=== PATIENT | male | born 1960 | race Caucasian/White ===

== ENCOUNTER → 2017-09-06 12:57 | Outpatient (CLI) | payer MEDICARE, SELFPAY ==
[2017-09-11 17:01] LABS: Fecal Immunochemical Test NOT DETECTED
== END ==
PROVIDERS: PCP Family Medicine; Visit Provider Family Medicine
DX: Z12.11 Encounter for screening for malignant neoplasm of colon (principal)
CPT/HCPCS: 82274

== ENCOUNTER → 2019-10-15 16:00 | Outpatient (CLI) | payer MEDICARE, SELFPAY ==
[2019-10-18 04:36] LABS: COVID19 Sendout Not Detected (Not Detected)
== END ==
PROVIDERS: PCP Family Medicine; Visit Provider Physician Assistant
DX: R05 Cough (principal)
CPT/HCPCS: 87635

== ENCOUNTER → 2019-12-30 16:37 | Outpatient (CLI) | payer MEDICARE, SELFPAY ==
[2020-01-01 01:59] LABS: Fecal Immunochemical Test Negative (Negative)
== END ==
PROVIDERS: PCP Family Medicine; Referring Provider Family Medicine; Visit Provider Family Medicine
DX: Z12.11 Encounter for screening for malignant neoplasm of colon (principal)
CPT/HCPCS: 82274

== ENCOUNTER → 2020-01-21 09:57 | Outpatient (CLI) | payer MEDICARE, SELFPAY ==
--- NOTE | 2020-01-21 10:20 | DI.CT.S_ITS ---
PROCEDURE: CT SINUS SCREEN WO CON INDICATIONS: Other chronic sinusitis TECHNIQUE: Noncontrast 3.0 mm axial images acquired from the frontal sinuses to the mid-sella, with coronal and sagittal reformats. For radiation dose reduction, the following was used: automated exposure control, adjustment of mA and/or kV according to patient size. COMPARISON: None. FINDINGS: Image quality: Excellent. Maxillary Sinuses: No bony remodeling or destruction. Sinuses are clear. Ethmoid Air Cells: No bony remodeling or destruction. There is mild mucosal thickening seen. Sphenoid Sinuses: No bony remodeling or destruction. Sinuses are clear. Frontal Sinuses: No bony remodeling or destruction. Sinuses are clear. Ostiomeatal Complexes: Ostiomeatal complexes are patent. No Dayron cells. Miscellaneous: Visualized intra-orbital contents are normal. No penny bullosa or paradoxical turbinate curvature. There is mild to moderate rightward nasal septal deviation. IMPRESSION: Mild mucosal thickening is seen within the ethmoid air cells. The paranasal sinuses otherwise appear clear. Mild to moderate rightward nasal septal deviation can be seen. Dictated by: Vincenzo Love M.D. on 01/21/2020 at 9:26 Approved by: Vincenzo Love M.D. on 01/21/2020 at 9:27
== END ==
PROVIDERS: PCP Family Medicine; Referring Provider Otolaryngology; Visit Provider Otolaryngology
DX: J01.41 Acute recurrent pansinusitis (principal); J32.8 Other chronic sinusitis; J34.89 Other specified disorders of nose and nasal sinuses; J34.2 Deviated nasal septum; R51 Headache; F17.210 Nicotine dependence, cigarettes, uncomplicated
CPT/HCPCS: 70486

== ENCOUNTER → 2020-08-24 07:42 | Outpatient (CLI) | payer MEDICARE, SELFPAY ==
[2020-08-24 08:28] LABS: Hemoglobin A1C% w Est Avg Glu 5.8 % (4.0-6.0)
[2020-08-24 08:59] LABS: Cholesterol 199 mg/dL (140-199); Glucose 108 mg/dL (80-110); HDL Cholesterol 31 mg/dL (40-60); LDL Cholesterol Calculated 141 mg/dL (<100); Triglycerides 137 mg/dL (35-150)
[2020-08-24 09:28] LABS: TSH w/ Reflex to FT4 2.63 uIU/mL (0.47-4.68)
== END ==
PROVIDERS: PCP Family Medicine; Referring Provider Family Medicine; Visit Provider Family Medicine
DX: R20.8 Other disturbances of skin sensation (principal); Z13.1 Encounter for screening for diabetes mellitus; Z13.220 Encounter for screening for lipoid disorders
CPT/HCPCS: 36415; 80061; 82947; 83036; 84443

== ENCOUNTER → 2021-01-12 09:46 | Outpatient (CLI) | payer MEDICARE, SELFPAY ==
[2021-01-12 10:39] LABS: COVID19 -Nasal RAPID Negative (Negative)
== END ==
PROVIDERS: PCP Family Medicine; Visit Provider Physician Assistant
DX: Z20.822 Contact with and (suspected) exposure to COVID-19 (principal)
CPT/HCPCS: 87635

== ENCOUNTER → 2021-05-02 12:25 | Outpatient (CLI) | payer MEDICARE, SELFPAY ==
[2021-05-02 13:05] LABS: Estimated Glomerular Filt Rate > 60.0 mL/min (>60)
== END ==
PROVIDERS: PCP Family Medicine; Referring Provider Otolaryngology; Visit Provider Otolaryngology
DX: D37.09 Neoplasm of uncertain behavior of other specified sites of the oral cavity (principal)
CPT/HCPCS: 36415; 82565

== ENCOUNTER → 2021-07-18 15:23 | Outpatient (CLI) | payer MEDICARE, SELFPAY ==
--- NOTE | 2021-07-29 08:16 | PM.CARDMON.1 ---
Digital Media Specialist Report Referral & Results Date Patient Seen: 07/18/21 Requesting provider: Patty Summers Indication: Arrhythmia Duration of monitoring (days): 2 Diary information: There were 91 patient triggered events and 2 patient diary entries Patient events were associated variably (within 45 seconds) with sinus rhythm, simple PVCs, simple PACs, ventricular bigeminy, and ventricular trigeminy Data: Minimum heart rate identified was 55 beats per minute at 06:01 on 07/19/2021 Maximum sinus heart rate was 135 beats per minute at 09:31 on 07/19/2021. This was also the maximum overall heart rate Less than 1% of identified beats were supraventricular ectopic in origin which would classify them as rare Approximately 2.9% of identified beats were ventricular ectopic in origin which would classify them as occasional, this includes a 1 minute 15 second run of ventricular trigeminy and then 8.1 second run of ventricular bigeminy No pauses of 3 seconds or longer or atrial fibrillation identified on this study Impression: 2 day equipment monitor phototypesetting demonstrating occasional PVCs including very brief runs of ventricular bigeminy and ventricular trigeminy Patient reported events are not necessarily associated with anyone particular dysrhythmia although ventricular dysrhythmias are more frequent than supraventricular dysrhythmias Clinical correlation suggested
== END ==
PROVIDERS: PCP Family Medicine; Referring Provider Family Medicine; Visit Provider Family Medicine
DX: I49.9 Cardiac arrhythmia, unspecified (principal)
CPT/HCPCS: 93244; 93246

== ENCOUNTER → 2021-12-02 08:37 | Outpatient (CLI) | payer MEDICARE, SELFPAY ==
[2021-12-02 15:51] LABS: Adenovirus F 40/41 Not Detected (Not Detect); Astrovirus Not Detected (Not Detect); Campylobacter Not Detected (Not Detect); Clostridium difficile toxin AB Not Detected (Not Detect); Cryptosporidium Not Detected (Not Detect); Cyclospora cayetanensis Not Detected (Not Detect); Entamoeba histolytica Not Detected (Not Detect); Enteroaggregative E.coli Not Detected (Not Detect); Enteropathogenic E.coli Detected (Not Detect); Enterotoxigenic E.coli It/st Not Detected (Not Detect); Giardia lamblia Not Detected (Not Detect); Norovirus GI/GII Not Detected (Not Detect); Plesiomonsa shigelloides Not Detected (Not Detect); Rotavirus A Not Detected (Not Detect); Salmonella Not Detected (Not Detect); Sapovirus Not Detected (Not Detect); Shiga-like toxin-prod E.coli Not Detected (Not Detect); Shigella/Enteroinvasive E.coli Not Detected (Not Detect); Vibrio Not Detected (Not Detect); Vibrio cholerae Not Detected (Not Detect); Yersinia enterocolitica Not Detected (Not Detect)
== END ==
PROVIDERS: Family Provider Family Medicine; PCP Family Medicine; Referring Provider Student in an Organized Health Care Education/Training Program; Visit Provider Student in an Organized Health Care Education/Training Program
DX: R19.7 Diarrhea, unspecified (principal)
CPT/HCPCS: 87507

== ENCOUNTER → 2021-12-22 14:50 | Outpatient (CLI) | payer MEDICARE, SELFPAY | PROVIDERS: Family Provider Family Medicine; PCP Family Medicine; Referring Provider Family Medicine; Visit Provider Family Medicine | DX: R19.7 Diarrhea, unspecified (principal) | CPT/HCPCS: 87045; 87899 ==

== ENCOUNTER → 2022-01-13 08:09 | Outpatient (CLI) | payer MEDICARE, SELFPAY ==
[2022-01-13 10:04] LABS: T4 Total Thyroxine 6.95 ug/dL (5.5-11.0)
[2022-01-13 12:02] LABS: Adenovirus F 40/41 Not Detected (Not Detect); Astrovirus Not Detected (Not Detect); Campylobacter Not Detected (Not Detect); Clostridium difficile toxin AB Not Detected (Not Detect); Cryptosporidium Not Detected (Not Detect); Cyclospora cayetanensis Not Detected (Not Detect); Entamoeba histolytica Not Detected (Not Detect); Enteroaggregative E.coli Not Detected (Not Detect); Enteropathogenic E.coli Not Detected (Not Detect); Enterotoxigenic E.coli It/st Not Detected (Not Detect); Giardia lamblia Not Detected (Not Detect); Norovirus GI/GII Not Detected (Not Detect); Plesiomonsa shigelloides Not Detected (Not Detect); Rotavirus A Not Detected (Not Detect); Salmonella Not Detected (Not Detect); Sapovirus Not Detected (Not Detect); Shiga-like toxin-prod E.coli Not Detected (Not Detect); Shigella/Enteroinvasive E.coli Not Detected (Not Detect); Vibrio Not Detected (Not Detect); Vibrio cholerae Not Detected (Not Detect); Yersinia enterocolitica Not Detected (Not Detect)
[2022-01-14 15:03] LABS: Fats, Neutral Normal (.); Fats, Total Normal (.)
[2022-01-16 09:01] LABS: CMV DNA, Quant Real Time PCR Negative (Negative)
[2022-01-17 17:45] LABS: Deamidated Gliadin Ab IgA 3 units (0-19); Deamidated Gliadin Ab IgG 2 units (0-19); Immunoglobulin A,Qn 196 mg/dL (61-437); t-Transglutaminase IgA 2 U/mL (0-3)
== END ==
PROVIDERS: Family Provider Family Medicine; PCP Family Medicine; Referring Provider Internal Medicine Gastroenterology; Visit Provider Internal Medicine Gastroenterology
DX: R19.7 Diarrhea, unspecified (principal)
CPT/HCPCS: 82705; 82784; 83516; 84436; 84439; 86644; 86645; 87177; 87205; 87329; 87497; 87507

== ENCOUNTER → 2022-02-28 09:28 | Outpatient (CLI) | payer MEDICARE, SELFPAY ==
[2022-02-28 10:16] LABS: COVID19 -Nasal RAPID Negative (Negative)
== END ==
PROVIDERS: Family Provider Family Medicine; PCP Family Medicine; Visit Provider Surgery
DX: Z01.812 Encounter for preprocedural laboratory examination (principal); Z20.822 Contact with and (suspected) exposure to COVID-19
CPT/HCPCS: 87635

== ENCOUNTER 2022-03-01 10:23 | Day surgery (SDC) | payer MEDICARE, SELFPAY ==
--- NOTE | 2022-03-01 | PATH_ITS ---
[facility] Accession Number: [id number] . 01 Material submitted: . PART A: colon - CECAL RANDOM COLON BIOPSIES PART B: colon - COLON POLYP @ 25CM PART C: colon - RECTOSIGMOID RANDOM COLON BIOPSIES . 01 Clinical history: . A,C: R/O COLITIS . 01 Diagnosis: A. Random Cecum, Biopsies: Lymphocytic colitis. . B. Colon Polyp at 25 cm, Biopsy: Tubular adenoma. . C. Random Rectosigmoid Colon, Biopsies: Lymphocytic colitis. MRV 03/03/2022 1542 Local . 01 Electronically signed: . Noe Armas MD, PhD, Pathologist NPI- [id number] . 01 Gross description: . Part A: CECAL RANDOM COLON BIOPSIES: Received in formalin are multiple fragment(s) of gillette, soft tissue measuring 1.0 x 0.3 x 0.1 cm in aggregate submitted entirely in 1 cassette(s) Part B: COLON POLYP @ 25CM: Received in formalin is 1 fragment(s) of gillette, soft tissue measuring 0.7 x 0.3 x 0.3 cm submitted entirely in 1 cassette(s) Part C: RECTOSIGMOID RANDOM COLON BIOPSIES: Received in formalin are multiple fragment(s) of gillette, soft tissue measuring 0.7 x 0.4 x 0.1 cm in aggregate submitted entirely in 1 cassette(s) /CPE 03/02/2022 0930 Local . 01 Pathologist provided ICD-10: K52.89, D12.6 . 01 CPT . 354234, [id number], [id number] Specimen Comment: A courtesy copy of this report has been sent to [phone] Performed at: [facility] [address] [place] [address], [place] [id number] MD Nathan Ag MD Phone: [phone]
[2022-03-01 10:50] VITALS: BP 156/85; PULSE 88; RESP 16; TEMP 36.4; O2SAT 96; BMI 29.4
[2022-03-01] MEDS: SODIUM CHLORIDE 0.9% 1,000 ML 84 ML IV (11:06)
--- NOTE | 2022-03-01 11:55 | PM.HP.1 ---
History of Present Illness History of Present Illness Date Patient Seen: 03/01/22 Chief complaint: SCREENING COLONOSCOPY Narrative: Change in bowel habits rule out colitis. In addition, colorectal cancer screening Patient History Medical History Acute appendicitis Bronchitis Right shoulder pain (03/04/14) Sinusitis Surgical History History of tonsillectomy Family & Social History Family History Sister Colorectal cancer Tobacco & Substance use: Smoking Status Current every day smoker Smoking packs per day 0.5 alcohol intake frequency holiday/special occasion Substance Use Type does not use Meds Home Medications and Allergies Home Medications Medication Instructions Recorded Confirmed Type calcium carbonate 300 mg (750 mg) 300 mg PO DAILY PRN dyspepsia 09/30/21 03/01/22 History chewable tablet (Tums) cholecalciferol (vitamin D3) 50 50 mcg PO DAILY 09/30/21 03/01/22 History mcg (2,000 unit) capsule guaifenesin 600 mg tablet, 600 mg PO BID 09/30/21 03/01/22 History extended release 12 hr melatonin 5 mg tablet 5 mg PO BEDTIME PRN Insomnia 09/30/21 03/01/22 History hbhgocns-ywc-dhqiu acid 300 1 tab PO DAILY 09/30/21 02/28/22 History mcg-lycopene 600 mcg-lutein 300 mcg tablet (Centrum Silver Men) pembrolizumab 25 mg/mL intravenous 200 mg IV Q3W 09/30/21 03/01/22 History solution simethicone 125 mg capsule (Gas-X 125 mg PO QD-BID PRN Indigestion 09/30/21 03/01/22 History Extra Strength) hydroxyzine HCl 25 mg tablet 25 mg PO TID PRN anxiety #30 tabs 11/30/21 03/01/22 Rx acetaminophen 325 mg capsule 650 mg PO Q6H PRN Pain (Scale 02/28/22 03/01/22 History (Tylenol) Score 4-6) pseudoephedrine HCl 30 mg tablet 30 mg PO Q4-6H PRN Allergy Symptoms 02/28/22 03/01/22 History (Sudafed) Allergies Allergy/AdvReac Type Severity Reaction Status Date / Time codeine AdvReac Mild NAUSEA Verified 03/01/22 10:35 Exam Vital Signs (past 8 hours): - 03/01/22 10:50 Temperature 97.6 F Pulse Rate 88 Respiratory Rate 16 Blood Pressure 156/85 H Pulse Oximetry 96 Oxygen Delivery Method Room Air Oxygen Delivery Method Room Air Narrative Exam Narrative: Oropharynx free of lesions Chest clear to auscultation and percussion Cardiac exam reveals no S3 or murmur Assessment & Plan Assessment & Plan narrative: Change in bowel movements need for colonoscopy to rule out underlying colitis. Screening for colon cancer will also be performed. Risks, benefits, alternatives have been explained. Time Spent With Patient Critical Care time: I spent a total of [] minutes of critical care time on this patient's care today; this time is exclusive of procedural time.
--- NOTE | 2022-03-01 11:57 | PM.OP.COLON ---
Operative Date/Time/Diagnoses Date of procedure: 03/01/22 Pre-op diagnosis: See indication and findings Procedure & Clinicians Study performed: Colonoscopy with biopsy Indications: Change in bowel movement and screening for colon cancer Surgeon: Markus Jewell Procedure Notes Procedure in detail: After informed consent was obtained the patient was placed in left lateral decubitus position. The video colonoscope was introduced the rectum slowly advanced cecum. On slow withdrawal mucosa was carefully examined. The scope was removed. The patient tolerated procedure well. Blood loss none Complications none Sedation propofol Findings 1. Diffuse mild changes throughout the colon. This included loss of vascularity, edema and patchy erythema. Biopsies were taken throughout the colon randomly. 2. 10 mm sessile polyp at 25 cm cold snared and removed. 3. Rectosigmoid with a bit more severity of the same findings. Biopsies taken into another bottle Will be in touch with Aaron about his biopsy results. He will most likely need follow-up colonoscopy in 5-7 years unless a clear-cut family history place him in the 3 year category.
[2022-03-01 12:29] VITALS: BP 118/72; PULSE 86; RESP 16; TEMP 36.7; O2SAT 96
[2022-03-01 12:34] VITALS: BP 120/70; PULSE 93; RESP 17; O2SAT 92
[2022-03-01 12:39] VITALS: BP 135/83; PULSE 77; RESP 13; O2SAT 96
[2022-03-01 12:44] VITALS: BP 133/84; PULSE 72; RESP 14; O2SAT 98
[2022-03-01 12:50] VITALS: BP 125/80; PULSE 75; RESP 14; O2SAT 98
== END 2022-03-01 13:02 | disposition home or self-care (01) ==
PROVIDERS: Family Provider Family Medicine; PCP Family Medicine; Referring Provider Internal Medicine Gastroenterology; Visit Provider Internal Medicine Gastroenterology
PROC: 0DJD8ZZ Inspection of Lower Intestinal Tract, Via Natural or Artificial Opening Endoscopic (ICD-10-PCS; CPT 45378; principal; 2022-03-01 11:30)
DX: K52.832 Lymphocytic colitis (principal); D12.6 Benign neoplasm of colon, unspecified
CPT/HCPCS: 45380; 45385; J2704

== ENCOUNTER → 2022-05-18 08:14 | Outpatient (CLI) | payer MEDICARE, SELFPAY ==
--- NOTE | 2022-05-18 15:43 | DIET.CONS ---
Dietary Consultation Note Assessment: 61 yo M attended visit to discuss what food he can eat to support his cancer treatment. 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 In the past yr he has lost over 40# (18.2%). Pt recently learned he has metastatic disease to lymph nodes and lungs. ? Past chemo side effects: nerves, headache, low appetite, bland taste, fatigue. Morning is roughest part of day, colitis at 4am. ? Food Recall: Sn: cheesecake B: eggs and harper, maltomeal L: pb and j on a spoon, deli meat and cheese or page D: soft taco with refried beans and cheese Sn: apple sauce, cottage cheese, mixed nuts No crunchy foods or bread, missing two teeth and half of hard palate due to cancer. ? Has his sister and friends as a support system. Walks ~2-3x/d (2 blocks) with dog and does light wt dumbbell?exercises to support muscles.? Pt is at high risk for continued wt loss and malnutrition due to upcoming cycles of chemotherapy.? Pt has heard many suggestions on how to support health during treatment and to support health to reduce further risk for cancer. Pt desires to learn concrete advice that will be realistic for him over the next few months. Wt: 90.3kg (18.2% in 1y) UBW: 110kg Nutrition Diagnosis: Moderate acute malnutrition r/t physiological causes increasing nutrient needs due to acute illness or injury/trauma aeb 18.2% wt loss in 1 year, colitis, recent metastatic cancer diagnosis, mouth surgery and upcoming chemotherapy. Interventions: 1. Discussed the importance of gaining and/or keeping wt steady through cancer treatment. Educated pt on the role of CHO and fat in terms of energy. Collaborated on ways to increase kcal intake - incorporating avocados, sour cream, more peanut butter, cheese and using full fat rather than reduced. [facility] Juan BORJAYL as a resource for recipes and information. Pt seemed motivated and plans to meal prep (fresh and frozen) prior to chemo treatment.? 2. Discussed pts concerns regarding F/V intake during chemo treatment and role of supplements or flax oil. [facility] pt focus intake on high kcal/high pro foods which are easy to eat. Pt may consume F/V as desired, however, no need to push these foods. Recc avoiding supplements during chemo and to discuss any consumption of them with oncologist. Pt may consume flax oil as desired, recc Bardarnellan's flax on cottage cheese. 3. Reinforced pts current exercise routine of strength training twice weekly and walking dog daily. Reassured pt no need to incorporate more exercise to preserve LBM. Provided resource for easy strength training exercises. Monitoring/Evaluations: f/u prn Electronically Signed by: Sandra Meek 05/18/22 15:43 Clinical Dietitian [address] [id number]
== END ==
PROVIDERS: Absent Provider Internal Medicine Medical Oncology; Family Provider Family Medicine; PCP Family Medicine; Referring Provider Family Medicine
DX: C06.0 Malignant neoplasm of cheek mucosa (principal); E44.0 Moderate protein-calorie malnutrition; Z71.3 Dietary counseling and surveillance; F17.200 Nicotine dependence, unspecified, uncomplicated
CPT/HCPCS: 97802

== ENCOUNTER → 2022-10-13 09:06 | Outpatient (CLI) | payer MEDICARE, SELFPAY ==
--- NOTE | 2022-10-13 09:08 | DI.RAD.S_ITS ---
PROCEDURE: XR CHEST 2V INDICATIONS: Cough TECHNIQUE: 2 views of the chest were acquired. COMPARISON: [facility], , CHEST 2 VIEW, 09/03/2006, 17:12. FINDINGS: Surgical changes and devices: None. Lungs and pleura: Right lower lobe nodule versus prominent nipple shadow. Clear chest otherwise. Mediastinum: Mediastinal contours are normal. Heart size is normal. Bones and chest wall: No suspicious bony abnormalities. Soft tissues appear unremarkable. IMPRESSION: No acute cardiopulmonary process. Right lower lobe nodule versus prominent nipple shadow. Dictated by: Brooks Michelle M.D. on 10/13/2022 at 9:21 Approved by: Brooks Michelle M.D. on 10/13/2022 at 9:22
== END ==
PROVIDERS: Family Provider Family Medicine; PCP Family Medicine; Referring Provider Nurse Practitioner Family; Visit Provider Nurse Practitioner Family
DX: R05.9 Cough, unspecified (principal)
CPT/HCPCS: 71046

== ENCOUNTER 2023-04-27 17:50 | Emergency (ER) | payer MEDICARE, SELFPAY ==
[2023-04-27 17:52] VITALS: BP 131/97; PULSE 98; RESP 16; TEMP 36.6; O2SAT 99; BMI 29.4
--- NOTE | 2023-04-27 18:42 | DI.CT.S_ITS ---
PROCEDURE: CT ABDOMEN PELVIS W CON INDICATIONS: Abdominal pain TECHNIQUE: After the administration of intravenous contrast, axial sections acquired from the lung bases to the pubic symphysis. Coronal and sagittal reformats were performed. For radiation dose reduction, the following was used: automated exposure control, adjustment of mA and/or kV according to patient size. COMPARISON: [facility], [place], PET WHOLE BODY MELANOMA, 12/20/2022, 8:21. [facility], [place], ABDOMEN/PELVIS WITH CONTRAST, 09/25/2014, 16:40. FINDINGS: Image quality: Diagnostic. Lower Chest: 8 mm left lobe nodule series 5, image 2, unchanged. Posterior right lower lobe nodule measuring 5 mm series 5, image 11 has decreased from 10 mm on prior exam. ABDOMEN: Liver: Hepatic steatosis is present. Unchanged appearance of low-attenuation foci with the larger most consistent with simple cysts. Smaller lesions are too small to definitively characterize. Gallbladder: No radiopaque gallstones or wall thickening. Biliary ducts: No biliary dilation. Pancreas: No ductal dilation. Spleen: Size is within normal limits. Adrenal Glands: Unchanged nodular thickening of the left adrenal gland.. Kidneys and Ureters: No hydronephrosis. No solid mass. No complex renal cystic lesion which requires follow up. Simple left renal cysts. Stomach and Bowel: Normal colonic caliber, without significant wall thickening. Minimal diverticula without inflammatory change. Peritoneum: No abnormal intraperitoneal fluid. No free air. Ventral Wall: No hernia. Abdominal Nodes: No retroperitoneal or mesenteric adenopathy by size criteria. Vessels: Aorta and inferior vena cava are normal in size. PELVIS: Pelvic Organs: Unremarkable. Bladder: Unremarkable. Pelvic Nodes: No enlarged lymph nodes. Miscellaneous: No inguinal hernias are seen. Bones: No aggressive osseous abnormality. IMPRESSION: No acute intra-abdominal pelvic process. Lower lobe pulmonary nodules similar versus decreased in size. Dictated by: Chetna Crocker M.D. on 04/27/2023 at 19:39 Approved by: Chetna Crocker M.D. on 04/27/2023 at 19:45
[2023-04-27 18:51] LABS: Add Manual Diff / Slide Review NO; Basophils Absolute Auto 200 /uL (0-100); Basophils Percent Auto 1.2 % (0-2); Eosinophils Absolute Auto 200 /uL (0-450); Eosinophils Percent Auto 1.9 % (2-4); Hemoglobin 17.4 g/dL (13.5-17.5); Lymphocytes Absolute Auto 3900 /uL (1100-4500); Lymphocytes Percent Auto 30.6 % (25-40); Mean Corpuscular HGB Conc 34.8 % (30-36); Mean Corpuscular Hemoglobin 31.9 PG (26-34); Mean Corpuscular Volume 91.6 fL (80-100); Monocytes Absolute Auto 900 /uL (0-900); Monocytes Percent Auto 7.4 % (3-14); Neutrophils Absolute Auto 7500 /uL (1500-7000); Neutrophils Percent Auto 58.9 % (50-75); Platelet Count 304 X10^3/uL (150-400); Red Blood Cell Count 5.46 X10^6/uL (4.5-5.9); Red Cell Distribution Width 13.1 % (11.6-14.8); White Blood Cell Count 12.8 X10^3/uL (4.5-11.0)
[2023-04-27 18:54] LABS: Bacteria Urine None Seen; Culture Indicated Urine Cult Not Indicated; RBC Urine None Seen (0-5/HPF); Squamous Epithelial Cell Urine 0-1 /HPF (0-5/HPF); WBC Urine None Seen (0-5/HPF)
--- NOTE | 2023-04-27 18:56 | ED_ITS ---
HPI - Abdominal Pain General Chief Complaint: Abdominal Pain Stated Complaint: sent by wic/BP/Stomach pain Time Seen by Provider: 04/27/23 18:15 History of Present Illness HPI narrative: 62-year-old male who presents with progressively worsening generalized abdominal discomfort that is described is a ?pressure? with associated gas/bloating for 1- 2 weeks. Patient reports history of similar symptoms that have been ongoing for 1-2 years. Patient states that he has a history of colitis, metastatic melanoma with current immunotherapy. Patient reports using budesonide to help with chronic diarrhea. Patient states that he started a new blood pressure medication x 1 week ago has occasionally felt some transient dizziness. No other complaints or associated symptoms noted. Patient was initially seen in the walk-in clinic and encouraged to come to the emergency department for further evaluation management. Patient arrives via private vehicle. Patient is awake, alert, in no apparent distress and maintaining his own airway. Related Data Home Medications Medication Instructions Recorded Confirmed calcium carbonate 300 mg (750 mg) 300 mg PO DAILY PRN dyspepsia 09/30/21 05/23/23 chewable tablet (Tums) cholecalciferol (vitamin D3) 50 50 mcg PO DAILY 09/30/21 05/23/23 mcg (2,000 unit) capsule melatonin 5 mg tablet 5 mg PO BEDTIME PRN Insomnia 09/30/21 05/23/23 mvibbbdu-nr-qeqxk 300 mcg-K 60 1 tab PO DAILY 09/30/21 05/23/23 mcg-lycop 600 mcg-lutein 300 mcg tablet (Centrum Silver Men) simethicone 125 mg capsule (Gas-X 125 mg PO QD-BID PRN Indigestion 09/30/21 05/23/23 Extra Strength) acetaminophen 325 mg capsule 650 mg PO Q6H PRN Pain (Scale 02/28/22 05/23/23 (Tylenol) Score 4-6) budesonide 3 mg 9 mg PO DAILY 03/08/22 05/23/23 capsule,delayed,extended release prochlorperazine maleate 10 mg 10 mg PO Q6H PRN 05/01/23 05/23/23 tablet nivolumab 100 mg/10 mL intravenous mg IV cancer care 05/23/23 05/23/23 solution (Opdivo) Previous Rx's Medication Instructions Recorded chlorhexidine gluconate 0.12 % 15 ml buccal DAILY PRN mouth sore 05/01/23 mouthwash #1,500 mL Allergies Allergy/AdvReac Type Severity Reaction Status Date / Time codeine AdvReac Mild NAUSEA Verified 05/23/23 13:58 Review of Systems Review of Systems Narrative: See HPI for pertinent positives, otherwise review of systems negative Patient History Medical History Bronchitis Sinusitis Right shoulder pain (03/04/14) Acute appendicitis Surgical History History of tonsillectomy Family History Sister Colorectal cancer Social History Smoking Status: Current every day smoker Smoking Status: Current every day smoker alcohol intake frequency: holidays/special occasions only Substance Use Type: does not use Exam Initial Vital Signs Initial Vital Signs: Vital Signs Temperature 97.8 F 04/27/23 17:52 Pulse Rate 98 H 04/27/23 17:52 Respiratory Rate 16 04/27/23 17:52 Blood Pressure 131/97 H 04/27/23 17:52 Pulse Oximetry 99 04/27/23 17:52 Oxygen Delivery Method Room Air 04/27/23 17:52 Const General: cooperative, comfortable and well developed [facility] Head: normal to inspection, normocephalic and atraumatic Nose: external nose normal and nares normal Mouth: oral mucosae normal, tongue normal, oropharynx normal and moist mucous membranes Throat: posterior oropharynx normal and uvula midline Eyes General: Yes appearance normal, both eyes and all related structures Neck Neck: normal visual inspection Chest Chest: normal inspection of the chest Resp Effort & Inspection: normal respiratory effort, able to speak in complete sentences and no respiratory distress Cardio Rate: regular rate Rhythm: regular rhythm Pulses: radial pulses present GI Inspection: normal to inspection, no edema, non-distended and no visible herniation Palpation: soft, No guarding, No hernia, No mass and No tender Other: Exam deferred Back/Spine/Pelvis Back: normal to inspection Skin General: no rashes or lesions noted and turgor normal Neuro General: patient alert, patient awake, patient oriented x3 and moves all extremities Extrem General: normal to inspection, full ROM and normal exam except as noted Psych Appearance: grossly normal Course Orders Ordered: Discontinued Medications Potassium Chloride (Potassium Chloride 20 Meq/15 Ml Udc) 40 meq PO NOW ONE Stop: 04/27/23 20:11 Last Admin: 04/27/23 20:17 Dose: 40 meq Documented By: TATE Vital Signs Vital signs: Vital Signs - 8 hr 04/27/23 17:52 Temperature 97.8 F Pulse Rate 98 H Respiratory Rate 16 Blood Pressure 131/97 H Pulse Oximetry 99 Oxygen Delivery Method Room Air MDM - Abdominal Pain Differential Diagnosis Differential diagnosis: Likely abdominal pain, acute appendicitis, calculus of kidney, constipation, diverticulitis, gastroenteritis, pancreatitis and small bowel obstruction Lab Data 04/27/23 18:33 04/27/23 18:33 Labs: Lab Results 04/27/23 04/27/23 Range/Units 18:30 18:33 WBC 12.8 H (4.5-11.0) X10^3/uL RBC 5.46 (4.5-5.9) X10^6/uL Hgb 17.4 (13.5-17.5) g/dL Hct 50.0 (41-53) % MCV 91.6 (80-100) fL MCH 31.9 (26-34) PG MCHC 34.8 (30-36) % RDW 13.1 (11.6-14.8) % Plt Count 304 (150-400) X10^3/uL Neut % (Auto) 58.9 (50-75) % Lymph % (Auto) 30.6 (25-40) % Desha % (Auto) 7.4 (3-14) % Eos % (Auto) 1.9 L (2-4) % Baso % (Auto) 1.2 (0-2) % Neut # (Auto) 7500 H (9048-6935) /uL Lymph # (Auto) 3900 (9834-0281) /uL Desha # (Auto) 900 (0-900) /uL Eos # (Auto) 200 (0-450) /uL Baso # (Auto) 200 H (0-100) /uL Sodium 132 L (137-145) mmol/L Potassium 3.2 L (3.4-5.1) mmol/L Chloride 91 L (98-107) mmol/L Carbon Dioxide 28 (22-32) mmol/L BUN 13 (9-20) mg/dL Creatinine 1.10 (0.66-1.25) mg/dL Estimated GFR > 60 (>60) mL/min BUN/Creatinine Ratio 11.8 (6-22) Glucose 119 H (80-110) mg/dL Calcium 10.1 (8.4-10.2) mg/dL Total Bilirubin 1.1 (0.2-1.3) mg/dL AST 31 (17-59) IU/L ALT 18 (<50) IU/L Alkaline Phosphatase 83 (38-126) U/L Total Protein 8.0 (6.3-8.2) g/dL Albumin 4.6 (3.5-5.0) g/dL Globulin 3.4 (1.7-4.1) g/dL Albumin/Globulin Ratio 1.4 (1.0-2.8) Lipase 187 (23-300) U/L Urine RBC None seen (0-5/HPF) Urine WBC None seen (0-5/HPF) Ur Squamous Epith Cells 0-1 /hpf (0-5/HPF) Urine Bacteria None seen (None) Ur Culture Indicated? Cult not indicated Point of care testing: Urine Dip Bedside Urine Glucose Negative Bedside Urine Bilirubin - Negative Bedside Urine Ketone - Negative Urine Specific [place] 1.010 Bedside Urine Occult Blood + Bedside Urine pH 5.5 Bedside Urine Protein - Negative Bedside Urine Urobilinogen - Negative Bedside Urine Nitrite - Negative Bedside Urine Leukocytes - Negative Esterase MDM Narrative Medical decision making narrative: Patient presents with abdominal pain and bloating. Patient currently is being treated for metastatic melanoma with immunotherapy. Patient reports chronic diarrhea. Current vital signs are within normal limits/nonactionable. Hypokalemia and hyponatremia noted along with persistent leukocytosis based on prior lab findings. Imaging is not suggestive of acute disease, bowel obstruction, perforation mass or abscess. Discussed findings with patient. Patient requests discharge home. Return precautions given. PCP follow-up recommended within 1 week. Patient discharged home in stable condition and able to ambulate well without assistance at time of discharge. Discharge Plan Departure Patient Disposition: Home Clinical Impression: Abdominal bloating, Hyponatremia, Hypokalemia Abdominal pain Qualifiers: Abdominal location: unspecified location Qualified Code(s): R10.9 - Unspecified abdominal pain Instructions: DI for Abdominal Pain-Adult, DI for Hypokalemia, DI for Hyponatremia Prescriptions: Continued cholecalciferol (vitamin D3) 50 mcg (2,000 unit) capsule 50 mcg PO DAILY calcium carbonate [Tums] 300 mg (750 mg) tablet,chewable 300 mg PO DAILY PRN (Reason: dyspepsia) simethicone [Gas-X Extra Strength] 125 mg capsule 125 mg PO QD-BID PRN (Reason: Indigestion) Centrum Silver Men 300-600-300 mcg tablet 1 tab PO DAILY melatonin 5 mg tablet 5 mg PO BEDTIME PRN (Reason: Insomnia) acetaminophen [Tylenol] 325 mg Capsule 650 mg PO Q6H PRN (Reason: Pain (Scale Score 4-6)) budesonide 3 mg Capsule,Delayed,Extend.Release 9 mg PO DAILY Rx Instructions: take 9 mg PO QD x 6 weeks then reduce to 6 mg daily x 2 weeks No Action Opdivo 100 mg/10 mL solution IV prochlorperazine maleate 10 mg tablet 10 mg PO Q6H PRN chlorhexidine gluconate 0.12 % mouthwash 15 ml buccal DAILY PRN (Reason: mouth sore) Qty: 1500 3RF Referrals: Rocio Colbert DO [Primary Care Provider] - As soon as possible Stand Alone Forms: Patient Portal/API
[2023-04-27 18:57] LABS: Alanine Aminotransferase 18 IU/L (<50); Albumin 4.6 g/dL (3.5-5.0); Albumin Globulin Ratio 1.4 (1.0-2.8); Alkaline Phosphatase 83 U/L (38-126); Aspartate Aminotransferase 31 IU/L (17-59); BUN Creatinine Ratio 11.8 (6-22); Bilirubin Total 1.1 mg/dL (0.2-1.3); Blood Urea Nitrogen 13 mg/dL (9-20); Calcium 10.1 mg/dL (8.4-10.2); Carbon Dioxide 28 mmol/L (22-32); Chloride 91 mmol/L (98-107); Estimated Glomerular Filt Rate > 60 mL/min (>60); Globulin 3.4 g/dL (1.7-4.1); Glucose 119 mg/dL (80-110); HEMOLYSIS 20 (0-50); Lipase 187 U/L (23-300); Potassium 3.2 mmol/L (3.4-5.1); Sodium 132 mmol/L (137-145)
[2023-04-27 19:21] VITALS: PULSE 77; O2SAT 95
[2023-04-27 19:30] VITALS: PULSE 79; O2SAT 93
[2023-04-27 20:00] VITALS: PULSE 76; O2SAT 92
[2023-04-27 20:17] VITALS: PULSE 82; O2SAT 96
[2023-04-27] MEDS: POTASSIUM CHLORIDE 20 MEQ/15 ML UDC 40 MEQ PO (20:17)
[2023-04-27 20:26] VITALS: BP 116/87
== END 2023-04-27 20:29 | disposition home or self-care (01) ==
PROVIDERS: Emergency Provider Emergency Medicine; Family Provider Family Medicine; PCP Family Medicine
DX: R10.9 Unspecified abdominal pain (principal); E87.1 Hypo-osmolality and hyponatremia; E87.6 Hypokalemia; R42 Dizziness and giddiness; R14.0 Abdominal distension (gaseous)
CPT/HCPCS: 36415; 74177; 80053; 81003; 81015; 83690; 85025; 99284; Q9967

== ENCOUNTER → 2023-08-31 06:51 | Outpatient (CLI) | payer MEDICARE, SELFPAY ==
[2023-08-31 08:19] LABS: Hemoglobin A1C% w Est Avg Glu 5.7 % (4.0-6.0)
[2023-08-31 08:35] LABS: BUN Creatinine Ratio 11.3 (6-22); Blood Urea Nitrogen 11 mg/dL (9-20); Calcium 8.8 mg/dL (8.4-10.2); Carbon Dioxide 25 mmol/L (22-32); Chloride 109 mmol/L (98-107); Cholesterol 222 mg/dL (140-199); Estimated Glomerular Filt Rate > 60 mL/min (>60); Glucose 83 mg/dL (80-110); HDL Cholesterol 44 mg/dL (40-60); HEMOLYSIS < 15 (0-50); LDL Cholesterol Calculated 165 mg/dL (<100); Sodium 141 mmol/L (137-145); Triglycerides 67 mg/dL (35-150)
[2023-08-31 09:28] LABS: HIV 1 & 2 Ab/Ag 4th Gen Combo NEGATIVE (NEGATIVE); Hep C Virus Ab w/Reflex Quant NEGATIVE s/c (NEGATIVE)
== END ==
PROVIDERS: Family Provider Family Medicine; PCP Family Medicine; Referring Provider Family Medicine; Visit Provider Family Medicine
DX: R73.01 Impaired fasting glucose (principal); E78.5 Hyperlipidemia, unspecified; I10 Essential (primary) hypertension
CPT/HCPCS: 36415; 80048; 80061; 83036; 86803; 87389

== ENCOUNTER 2024-01-04 09:37 | Day surgery (SDC) | payer MEDICARE, SELFPAY ==
[2024-01-02 16:18] VITALS: BMI 31.2
[2024-01-04] VITALS (8 sets, daily range): BP systolic 130–159; BP diastolic 64–92; PULSE 66–76; RESP 10–16; TEMP 36.3–36.8; O2SAT 94–97; BMI 31.5
--- NOTE | 2024-01-04 | DI.RAD.S_ITS ---
PROCEDURE: XR CHEST 1V INDICATIONS: LSC port TECHNIQUE: One view of the chest was acquired. COMPARISON: [facility], [place], XR CHEST 2V, 10/13/2022, 9:03. FINDINGS: Surgical changes and devices: Left chest wall port tip projects over the low SVC. Lungs and pleura: Lungs are clear. No pleural effusions or pneumothorax. Mediastinum: Mediastinal contours appear normal. Heart size is normal. Bones and chest wall: No suspicious bony lesions. Overlying soft tissues appear unremarkable. IMPRESSION: Left chest wall port tip projects over the low SVC. No pneumothorax. Dictated by: Brooks Michelle M.D. on 01/04/2024 at 13:05 Approved by: Brooks Michelle M.D. on 01/04/2024 at 13:07
[2024-01-04] MEDS: LACTATED RINGERS 1,000 ML 42 ML IV (10:19)
--- NOTE | 2024-01-04 11:18 | PM.HP.1 ---
History of Present Illness History of Present Illness Date Patient Seen: 01/04/24 Time Patient Seen: 11:38 Chief complaint: Port-a-cath placement Narrative: H/o melanoma of the hard pallate, has tried multiple treatment with modest to no success. Needs port a cath for future treatment. Never had a port before. [facility] Medical History IFG (impaired fasting glucose) Hyperlipidemia Benign essential hypertension Bronchitis Sinusitis Right shoulder pain (03/04/14) Acute appendicitis Surgical History History of tonsillectomy Family History Sister Colorectal cancer Social History household members: none Smoking Status: Current every day smoker Meds Home Medications and Allergies Home Medications Medication Instructions Recorded Confirmed Type calcium carbonate (Tums) 300 mg PO DAILY PRN dyspepsia 09/30/21 01/04/24 History cholecalciferol (vitamin D3) 50 50 mcg PO DAILY 09/30/21 01/04/24 History mcg (2,000 unit) capsule melatonin 5 mg tablet 5 mg PO BEDTIME PRN Insomnia 09/30/21 01/04/24 History ylfrxhqi-lr-mgfig 300 mcg-K 60 1 tab PO DAILY 09/30/21 01/04/24 History mcg-lycop 600 mcg-lutein 300 mcg tablet (Centrum Silver Men) acetaminophen 325 mg capsule 650 mg PO Q6H PRN Pain (Scale 02/28/22 01/04/24 History (Tylenol) Score 4-6) budesonide 3 mg 9 mg PO DAILY 03/08/22 01/04/24 History capsule,delayed,extended release losartan 50 mg tablet 50 mg PO DAILY blood pressure #90 08/27/23 01/04/24 Rx tabs nivolumab 240 fj-uxetfywcfa-joee 40 ml IV Q4W 08/27/23 01/04/24 History 80 mg/20 mL intravenous solution (Opdualag) varenicline 0.5 mg (11)-1 mg (42) See Rx Instructions PO PER PKG DIR 08/27/23 11/08/23 Rx tablets in a dose pack (Chantix #53 ea Starting Month Box) varenicline 1 mg tablet (Chantix) 1 mg PO BID #60 tabs 08/27/23 11/08/23 Rx Allergies Allergy/AdvReac Type Severity Reaction Status Date / Time codeine AdvReac Mild NAUSEA Verified 01/04/24 10:09 Review of Systems Review of Systems ROS: Yes All systems reviewed with the patient and are negative except as otherwise documented Exam Vital Signs (past 8 hours): - 01/04/24 10:22 Temperature 98.2 F Pulse Rate 66 Respiratory Rate 16 Blood Pressure 159/92 H Pulse Oximetry 97 Oxygen Delivery Method Room Air Oxygen Delivery Method Room Air Const General: cooperative, healthy appearing and comfortable Nutritional Appearance: average body habitus HENMT Head: normocephalic and atraumatic Ears: hearing grossly normal bilaterally Eyes Sclera: sclerae normal Neck Neck: trachea midline and No JVD Chest Chest: normal inspection of the chest Resp Effort & Inspection: normal respiratory effort and able to speak in complete sentences Cardio Rate: regular rate Rhythm: regular rhythm GI Palpation: soft and No tender Skin General: atrophy Neuro General: patient alert, patient awake and patient oriented x3 Cognition: normal cognition Psych Appearance: grossly normal Mental Status: mental status grossly normal Judgment: judgment good Assessment & Plan Assessment & Plan narrative: Melanoma Plan: left, possible right power port placement Time-Based Coding :: [TOTAL MINUTES] spent with patient and on the chart (including review of chart, obtaining history, exam, reviewing outside data, placing orders, documenting exam and treatment plan, and counseling patient) on [DATE].
[2024-01-04] MEDS: CEFAZOLIN 2 GM/100 ML PREMIX 100 ML IV (11:58)
--- NOTE | 2024-01-04 12:04 | SUR.OPER ---
Supine on padded OR bed, head on pillow, arms padded and tucked at sides, legs uncrossed, safety belt at thigh, tape over blanket over lower legs .
[2024-01-04] MEDS: LIDOCAINE 1% 20 ML INJ (12:06)
[2024-01-04] MEDS: BUPIVACAINE 0.25% (PF) 30 ML, EPINEPHrine 0.15 MG INJ (12:07)
[2024-01-04] MEDS: HEPARIN 5,000 UNIT, SODIUM CHLORIDE 0.9% 50 ML IV (12:09)
--- NOTE | 2024-01-04 12:41 | P.OP_ITS ---
Operative Date/Time/Diagnoses Date of procedure: 01/04/24 Time of procedure: 12:41 Pre-op diagnosis: Left subclavian vein Port-A-Cath placement, PowerPort Post-op diagnosis: same Procedure & Clinicians Procedure: Preop diagnosis: Left subclavian vein PowerPort placement Postop diagnosis: Same Operative procedure: Left subclavian vein PowerPort placement Surgeon: Dawna Whitaker MD Anesthetic: ET tube intubation along with local Findings: J-wire originally went into perfect positioning however when the catheter was placed over the wire I went across to the opposite subclavian vein. I then replaced the J-wire and re-did the catheter to put it into good position in the right atrium. Good venous return Procedure: Patient placed in a Trendelenburg position prepped and draped in sterile fashion. Left subclavian vein was accessed and with Seldinger technique J-wire was placed. Catheter length was sized and attached to the port itself which was thoroughly flushed with a heparin solution. This was placed into the left subclavian vein down to the right atrium using Seldinger technique. Had good venous flush on a return, and flushed the catheter with heparin solution. The port was then tacked to the anterior chest wall in 3 points using 2-0 Ethibond. Subcutaneous tissue was reapproximated with interrupted 3-0 Vicryl. Skin was closed with a running 4 0 barbed absorbable. Steri-Strips and sterile dressings were placed. Patient was awakened, extubated, taken to recovery room in stable condition. Needle, instrument, sponge counts were correct. Blood loss: 15 mL Same procedure as scheduled: Yes Indications: Melanoma Surgeon: Mercedes Whitaker Click Yes if Unassisted: Yes Anesthesia Type: General and Local Operative Notes Findings: Fluoroscopy confirmed positioning in the right atrium Closure Type: primary Specimen(s): none sent Applied: catheter (Eight [place] PowerPort) Estimated Blood Loss (mL): 15 Procedure in detail: See under procedure above Complications: none Post-operative Condition: stable Disposition: PACU
== END 2024-01-04 13:30 | disposition home or self-care (01) ==
PROVIDERS: Family Provider Family Medicine; PCP Family Medicine; Referring Provider Surgery; Visit Provider Surgery
PROC: (CPT 36561; principal; 2024-01-04 11:30)
DX: C43.8 Malignant melanoma of overlapping sites of skin (principal); Z45.2 Encounter for adjustment and management of vascular access device
CPT/HCPCS: 36561; 71045; 76000; C1788; J0171; J0690; J1100; J1644; J1885; J2250; J2405; J2704; J3010

== ENCOUNTER 2024-01-11 07:54 | Emergency (ER) | payer MEDICARE, SELFPAY ==
[2024-01-11] VITALS (18 sets, daily range): BP systolic 130–191; BP diastolic 74–106; PULSE 57–74; RESP 10–17; TEMP 37.1; O2SAT 94–99; BMI 31.5
--- NOTE | 2024-01-11 08:06 | EKG_ITS ---
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
--- NOTE | 2024-01-11 08:06 | DI.RAD.S_ITS ---
PROCEDURE: XR CHEST 1V INDICATIONS: Chest pain TECHNIQUE: One view of the chest was acquired. COMPARISON: [facility], CR, XR CHEST 1V, 01/04/2024, 12:54. FINDINGS: Surgical changes and devices: Port-A-Cath Lungs and pleura: Lungs are clear. No pleural effusions or pneumothorax. Mediastinum: Mediastinal contours appear normal. Heart size is normal. Bones and chest wall: No suspicious bony lesions. Overlying soft tissues appear unremarkable. IMPRESSION: No acute cardiopulmonary abnormality is seen. Dictated by: Bj Quevedo M.D. on 01/11/2024 at 8:39 Approved by: Bj Quevedo M.D. on 01/11/2024 at 8:39
[2024-01-11 08:23] LABS: Add Manual Diff / Slide Review NO; Basophils Absolute Auto 100 /uL (0-100); Basophils Percent Auto 0.9 % (0-2); Eosinophils Absolute Auto 200 /uL (0-450); Eosinophils Percent Auto 2.1 % (2-4); Hematocrit 41.7 % (41-53); Hemoglobin 14.3 g/dL (13.5-17.5); Lymphocytes Absolute Auto 3800 /uL (1100-4500); Lymphocytes Percent Auto 32.5 % (25-40); Mean Corpuscular HGB Conc 34.4 % (30-36); Mean Corpuscular Volume 93.1 fL (80-100); Monocytes Absolute Auto 800 /uL (0-900); Monocytes Percent Auto 7.2 % (3-14); Neutrophils Absolute Auto 6800 /uL (1500-7000); Neutrophils Percent Auto 57.3 % (50-75); Platelet Count 300 X10^3/uL (150-400); Red Blood Cell Count 4.48 X10^6/uL (4.5-5.9); Red Cell Distribution Width 14.1 % (11.6-14.8); White Blood Cell Count 11.8 X10^3/uL (4.5-11.0)
--- NOTE | 2024-01-11 08:24 | ED.CHESTPAIN ---
HPI - Chest Pain General Chief Complaint: Chest Pain Stated Complaint: chest pain, lightheadedness Time Seen by Provider: 01/11/24 08:05 Source: patient Mode of arrival: Ambulatory Limitations: no limitations History of Present Illness HPI narrative: Patient is a 63-year-old male he was encouraged to come to the emergency department by his primary doctor's office for evaluation of chest discomfort and generally not feeling very well to include lightheadedness. One week ago he had a port placed in his left upper chest. He has a history of mucosal melanoma. He has been on immunotherapy. There was a positive biopsy recently in the port was placed because there maybe a change to another immunotherapy versus chemotherapy. He has had the chest discomfort since he had the port placed. No fevers. No abdominal pain or vomiting. He occasionally gets GI upset and headaches because of his immunotherapy. Related Data Home Medications Medication Instructions Recorded Confirmed calcium carbonate (Tums) 300 mg PO DAILY PRN dyspepsia 09/30/21 01/04/24 cholecalciferol (vitamin D3) 50 50 mcg PO DAILY 09/30/21 01/04/24 mcg (2,000 unit) capsule melatonin 5 mg tablet 5 mg PO BEDTIME PRN Insomnia 09/30/21 01/04/24 rzcrmqrg-wu-wnldm 300 mcg-K 60 1 tab PO DAILY 09/30/21 01/04/24 mcg-lycop 600 mcg-lutein 300 mcg tablet (Centrum Silver Men) acetaminophen 325 mg capsule 650 mg PO Q6H PRN Pain (Scale 02/28/22 01/04/24 (Tylenol) Score 4-6) budesonide 3 mg 9 mg PO DAILY 03/08/22 01/04/24 capsule,delayed,extended release nivolumab 240 ul-tpcjnvbihc-mxlx 40 ml IV Q4W 08/27/23 01/04/24 80 mg/20 mL intravenous solution (Opdualag) Previous Rx's Medication Instructions Recorded losartan 50 mg tablet 50 mg PO DAILY blood pressure #90 08/27/23 tabs varenicline 0.5 mg (11)-1 mg (42) See Rx Instructions PO PER PKG DIR 08/27/23 tablets in a dose pack (Chantix #53 ea Starting Month Box) varenicline 1 mg tablet (Chantix) 1 mg PO BID #60 tabs 08/27/23 tramadol 100 mg tablet 100 mg PO BID PRN pain #10 tabs 01/04/24 Allergies Allergy/AdvReac Type Severity Reaction Status Date / Time codeine AdvReac Mild NAUSEA Verified 01/04/24 10:09 Review of Systems Review of Systems ROS Unobtainable: All systems reviewed & are unremarkable except as noted in HPI and below Patient History Medical History IFG (impaired fasting glucose) Hyperlipidemia Benign essential hypertension Bronchitis Sinusitis Right shoulder pain (03/04/14) Acute appendicitis Surgical History History of tonsillectomy Family History Sister Colorectal cancer Social History household members: none Smoking Status: Current every day smoker Smoking Status: Current every day smoker alcohol intake frequency: holidays/special occasions only Substance Use Type: does not use Exam Initial Vital Signs Initial Vital Signs: Vital Signs Temperature 98.8 F 01/11/24 08:00 Pulse Rate 72 01/11/24 08:00 Respiratory Rate 17 01/11/24 08:00 Blood Pressure 174/98 H 01/11/24 08:00 Pulse Oximetry 99 01/11/24 08:00 Oxygen Delivery Method Room Air 01/11/24 08:00 Const General: cooperative, comfortable and No ill appearing HENMT Head: normal to inspection and normocephalic Chest Chest: No crepitus and tenderness (Left chest over port site) Resp Effort & Inspection: normal respiratory effort Auscultation: clear to auscultation bilaterally Cardio Rate: regular rate Rhythm: regular rhythm GI Inspection: normal to inspection and non-distended Skin Other: Skin incision looks well over report side Neuro General: patient alert, patient awake, patient oriented x3 and moves all extremities Extrem General: normal to inspection and capillary refill normal Course Orders Ordered: ED Orders 01/11/24 08:06 XR chest 1V Stat EKG-12 Lead Stat 01/11/24 08:16 Complete Blood Count AUTO DIFF Stat Comprehensive Metabolic Panel Stat Lipase Stat Troponin & CK Cardiac Panel Stat 01/11/24 10:28 Troponin & CK Cardiac Panel Stat 01/11/24 12:23 Troponin & CK Cardiac Panel Stat Vital Signs Vital signs: Vital Signs - 8 hr 01/11/24 08:00 01/11/24 08:03 01/11/24 08:21 Temperature 98.8 F Pulse Rate 72 71 Respiratory Rate 17 Blood Pressure 174/98 H 177/99 H Pulse Oximetry 99 99 Oxygen Delivery Method Room Air 01/11/24 08:21 01/11/24 08:30 01/11/24 08:31 Temperature Pulse Rate 70 67 Respiratory Rate 16 Blood Pressure 149/95 H Pulse Oximetry 97 Oxygen Delivery Method Room Air 01/11/24 08:31 01/11/24 09:00 01/11/24 09:00 Temperature Pulse Rate 65 61 Respiratory Rate 16 14 Blood Pressure 161/74 H Pulse Oximetry 95 95 Oxygen Delivery Method 01/11/24 09:30 01/11/24 09:31 01/11/24 09:31 Temperature Pulse Rate 59 L 57 L Respiratory Rate 14 14 Blood Pressure 140/80 Pulse Oximetry 94 95 Oxygen Delivery Method 01/11/24 10:00 01/11/24 10:00 01/11/24 10:21 Temperature Pulse Rate 59 L Respiratory Rate 16 Blood Pressure 134/85 191/106 H Pulse Oximetry 96 Oxygen Delivery Method 01/11/24 10:21 01/11/24 10:30 01/11/24 10:30 Temperature Pulse Rate 74 69 Respiratory Rate 12 10 L Blood Pressure 180/97 H Pulse Oximetry 99 99 Oxygen Delivery Method 01/11/24 11:00 01/11/24 11:01 01/11/24 11:01 Temperature Pulse Rate 64 74 Respiratory Rate 12 15 Blood Pressure 159/94 H Pulse Oximetry 98 98 Oxygen Delivery Method 01/11/24 11:30 01/11/24 11:30 01/11/24 12:00 Temperature Pulse Rate 67 69 Respiratory Rate 13 12 Blood Pressure 165/95 H Pulse Oximetry 98 98 Oxygen Delivery Method 01/11/24 12:01 01/11/24 12:01 Temperature Pulse Rate 74 Respiratory Rate 14 Blood Pressure 139/75 Pulse Oximetry 98 Oxygen Delivery Method MDM - Chest Pain Lab Data Attestation: I reviewed the patient's lab results. 01/11/24 08:16 01/11/24 08:16 Labs: Lab Results 01/11/24 01/11/24 01/11/24 Range/Units 08:16 10:28 12:23 WBC 11.8 H (4.5-11.0) X10^3/uL RBC 4.48 L (4.5-5.9) X10^6/uL Hgb 14.3 (13.5-17.5) g/dL Hct 41.7 (41-53) % MCV 93.1 (80-100) fL MCH 32.0 (26-34) PG MCHC 34.4 (30-36) % RDW 14.1 (11.6-14.8) % Plt Count 300 (150-400) X10^3/uL Neut % (Auto) 57.3 (50-75) % Lymph % (Auto) 32.5 (25-40) % [place] % (Auto) 7.2 (3-14) % Eos % (Auto) 2.1 (2-4) % Baso % (Auto) 0.9 (0-2) % Neut # (Auto) 6800 (5285-7188) /uL Lymph # (Auto) 3800 (5036-8933) /uL [place] # (Auto) 800 (0-900) /uL Eos # (Auto) 200 (0-450) /uL Baso # (Auto) 100 (0-100) /uL Sodium 138 (137-145) mmol/L Potassium 3.4 (3.4-5.1) mmol/L Chloride 108 H (98-107) mmol/L Carbon Dioxide 24 (22-32) mmol/L BUN 10 (9-20) mg/dL Creatinine 0.73 (0.66-1.25) mg/dL Estimated GFR > 60 (>60) mL/min BUN/Creatinine Ratio 13.7 (6-22) Glucose 85 (80-110) mg/dL Calcium 8.5 (8.4-10.2) mg/dL Total Bilirubin 0.8 (0.2-1.3) mg/dL AST 31 (17-59) IU/L ALT 14 (<50) IU/L Alkaline Phosphatase 81 (38-126) U/L Total Creatine Kinase 66 149 58 (55-170) U/L Troponin I < 0.012 0.026 < 0.012 (0.01-0.034) ng/mL Total Protein 6.9 (6.3-8.2) g/dL Albumin 4.0 (3.5-5.0) g/dL Globulin 2.9 (1.7-4.1) g/dL Albumin/Globulin Ratio 1.4 (1.0-2.8) Lipase 1936 H (23-300) U/L Imaging Data Chest x-ray: Radiologist's Impression: PROCEDURE: XR CHEST 1V INDICATIONS: Chest pain TECHNIQUE: One view of the chest was acquired. COMPARISON: [facility], CR, XR CHEST 1V, 01/04/2024, 12:54. FINDINGS: Surgical changes and devices: Port-A-Cath Lungs and pleura: Lungs are clear. No pleural effusions or pneumothorax. Mediastinum: Mediastinal contours appear normal. Heart size is normal. Bones and chest wall: No suspicious bony lesions. Overlying soft tissues appear unremarkable. IMPRESSION: No acute cardiopulmonary abnormality is seen. ECG Data Attestation: I personally reviewed and interpreted this ECG as follows: Interpretation: Sinus rhythm Ventricular rate is 67 Occasional PVC Normal QRS No ST T wave changes MDM Narrative Medical decision making narrative: Chest x-ray is unremarkable. EKG is nonischemic. First troponin was negative. Second troponin still negative but detectable and 3rd troponin was negative. I have low suspicion this is ACS. I suspect that this is related to his port placement. I discussed all this with him. He was given return precautions. He expressed understanding and agreement. Discharge Plan Departure Patient Disposition: Home Clinical Impression: Atypical chest pain Instructions: DI for Atypical Chest Pain Activity Restrictions/Additional Instructions: Recommend that you continue to take all of your medications as directed. Contact your primary care doctor for a follow-up. Return to the emergency department for new or worsening symptoms. Prescriptions: No Action cholecalciferol (vitamin D3) 50 mcg (2,000 unit) capsule 50 mcg PO DAILY calcium carbonate [Tums] 300 mg (750 mg) tablet,chewable 300 mg PO DAILY PRN (Reason: dyspepsia) Centrum Silver Men 300-600-300 mcg tablet 1 tab PO DAILY melatonin 5 mg tablet 5 mg PO BEDTIME PRN (Reason: Insomnia) Opdualag 240-80 mg/20 mL solution 40 ml IV Q4W losartan 50 mg tablet 50 mg PO DAILY Qty: 90 3RF varenicline [Chantix Starting Month Box] 0.5 mg (11)- 1 mg (42) tablets,dose pack See Rx Instructions PO PER PKG DIR Qty: 53 0RF Rx Instructions: PO PER PKG DIR varenicline [Chantix] 1 mg tablet 1 mg PO BID Qty: 60 5RF tramadol 100 mg tablet 100 mg PO BID PRN (Reason: pain) Qty: 10 0RF acetaminophen [Tylenol] 325 mg Capsule 650 mg PO Q6H PRN (Reason: Pain (Scale Score 4-6)) budesonide 3 mg Capsule,Delayed,Extend.Release 9 mg PO DAILY Rx Instructions: take 9 mg PO QD x 6 weeks then reduce to 6 mg daily x 2 weeks Referrals: Rocio Colbert DO [Primary Care Provider] - Stand Alone Forms: Patient Portal/API
[2024-01-11 08:38] LABS: Alanine Aminotransferase 14 IU/L (<50); Albumin Globulin Ratio 1.4 (1.0-2.8); Alkaline Phosphatase 81 U/L (38-126); Aspartate Aminotransferase 31 IU/L (17-59); BUN Creatinine Ratio 13.7 (6-22); Bilirubin Total 0.8 mg/dL (0.2-1.3); Blood Urea Nitrogen 10 mg/dL (9-20); Calcium 8.5 mg/dL (8.4-10.2); Carbon Dioxide 24 mmol/L (22-32); Chloride 108 mmol/L (98-107); Creatine Kinase 66 U/L (55-170); Estimated Glomerular Filt Rate > 60 mL/min (>60); Globulin 2.9 g/dL (1.7-4.1); Glucose 85 mg/dL (80-110); HEMOLYSIS 35 (0-50); Potassium 3.4 mmol/L (3.4-5.1); Sodium 138 mmol/L (137-145); Total Protein 6.9 g/dL (6.3-8.2)
[2024-01-11 08:45] LABS: Lipase 1936 U/L (23-300)
[2024-01-11 08:51] LABS: Troponin I < 0.012 ng/mL (0.01-0.034)
[2024-01-11 10:48] LABS: Creatine Kinase 149 U/L (55-170)
[2024-01-11 11:01] LABS: Troponin I 0.026 ng/mL (0.01-0.034)
[2024-01-11 12:46] LABS: Creatine Kinase 58 U/L (55-170)
[2024-01-11 12:59] LABS: Troponin I < 0.012 ng/mL (0.01-0.034)
== END 2024-01-11 13:18 | disposition home or self-care (01) ==
PROVIDERS: Emergency Provider Emergency Medicine; Family Provider Family Medicine; PCP Family Medicine
DX: R07.89 Other chest pain (principal)
CPT/HCPCS: 36415; 71045; 80053; 82550; 83690; 84484; 85025; 93005; 99284

== ENCOUNTER 2024-02-14 01:53 | Emergency (ER) | payer MEDICARE, SELFPAY ==
[2024-02-14] VITALS (9 sets, daily range): BP systolic 119–142; BP diastolic 70–86; PULSE 86–98; RESP 20–38; O2SAT 90–94; BMI 31.5
--- NOTE | 2024-02-14 02:16 | DI.RAD.S_ITS ---
PROCEDURE: XR CHEST 1V INDICATIONS: chest pain TECHNIQUE: One view of the chest was acquired. COMPARISON: [facility], CR, XR CHEST 1V, 01/11/2024, 8:03. FINDINGS: Surgical changes and devices: Left chest wall Port-A-Cath tip is in SVC. Lungs and pleura: Hazy opacities are seen scattered in bilateral lung hanson more notably on the right side. No pleural effusions or pneumothorax. Mediastinum: Mediastinal contours appear normal. Heart size is normal. Bones and chest wall: No suspicious bony lesions. Overlying soft tissues appear unremarkable. IMPRESSION: Suggestion of ill-defined bilateral multilobar infiltrates worse on the right side. No pleural effusion or pneumothorax. Dictated by: Kun Chaudhary M.D. on 02/14/2024 at 8:11 Approved by: Kun Chaudhary M.D. on 02/14/2024 at 8:12
--- NOTE | 2024-02-14 02:16 | ED_ITS ---
HPI - General Adult General Chief complaint: Weakness Stated complaint: Gen. Weakness Time Seen by Provider: 02/14/24 01:56 History of Present Illness HPI narrative: 63-year-old male with history of oral melanoma, left chest Port-A-Cath, ongoing monthly immunotherapy, infusions usually 1st week of each month, followed by Oncology at [facility], continues to smoke, with 2 weeks' duration cough productive of white- yellow sputum, increased generalized fatigue last couple of days, more short of breath. Arrival by EMS, given oxygen EN route. Related Data Home Medications Medication Instructions Recorded Confirmed calcium carbonate (Tums) 300 mg PO DAILY PRN dyspepsia 09/30/21 01/04/24 cholecalciferol (vitamin D3) 50 50 mcg PO DAILY 09/30/21 01/04/24 mcg (2,000 unit) capsule melatonin 5 mg tablet 5 mg PO BEDTIME PRN Insomnia 09/30/21 01/04/24 [id number] 300 mcg-K 60 1 tab PO DAILY 09/30/21 01/04/24 mcg-lycop 600 mcg-lutein 300 mcg tablet (Centrum Silver Men) acetaminophen 325 mg capsule 650 mg PO Q6H PRN Pain (Scale 02/28/22 01/04/24 (Tylenol) Score 4-6) budesonide 3 mg 9 mg PO DAILY 03/08/22 01/04/24 capsule,delayed,extended release nivolumab 240 dw-[id number]-[id number] 40 ml IV Q4W 08/27/23 01/04/24 80 mg/20 mL intravenous solution (Opdualag) Previous Rx's Medication Instructions Recorded losartan 50 mg tablet 50 mg PO DAILY blood pressure #90 08/27/23 tabs varenicline 0.5 mg (11)-1 mg (42) See Rx Instructions PO PER PKG DIR 08/27/23 tablets in a dose pack (Chantix #53 ea Starting Month Box) varenicline 1 mg tablet (Chantix) 1 mg PO BID #60 tabs 08/27/23 tramadol 100 mg tablet 100 mg PO BID PRN pain #10 tabs 01/04/24 azithromycin 250 mg tablet See Rx Instructions PO .COMPLEX #6 02/14/24 tabs Allergies Allergy/AdvReac Type Severity Reaction Status Date / Time codeine AdvReac Mild NAUSEA Verified 01/04/24 10:09 Review of Systems Review of Systems Narrative: see HPI Patient History Medical History IFG (impaired fasting glucose) Hyperlipidemia Benign essential hypertension Bronchitis Sinusitis Right shoulder pain (03/04/14) Acute appendicitis Surgical History History of tonsillectomy Family History Sister Colorectal cancer Social History household members: none Smoking Status: Current every day smoker Smoking Status: Current every day smoker alcohol intake frequency: holidays/special occasions only Substance Use Type: does not use Exam Narrative Exam Narrative: GENERAL: Well-developed patient, in mild distress. HEAD: Atraumatic. Normocephalic. EYES: Pupils equal round and reactive. Extraocular motions intact. No scleral icterus. No injection or drainage. ENT: Nose without bleeding, purulent drainage. Throat without erythema, tonsillar hypertrophy or exudate. Airway patent. NECK: Trachea midline. Non tender CARDIOVASCULAR: Regular rate and rhythm without murmurs, gallops, or rubs. RESPIRATORY: Crackles bibasilar, speaks in full sentences. No retractions intercostal or suprasternal. Left upper anterior Port-A-Cath site without redness or fluctuance or tenderness. GASTROINTESTINAL: Abdomen soft, non-tender, nondistended. EXTREMITIES: No edema or joint tenderness. BACK: Nontender without deformity or crepitance. No flank tenderness. NEURO: AOx3. Motor functions grossly nonfocal SKIN: No rash or erythema of visible areas Initial Vital Signs Initial Vital Signs: Vital Signs Pulse Rate 93 H 02/14/24 02:01 Respiratory Rate 28 H 02/14/24 02:01 Blood Pressure 119/82 02/14/24 02:01 Course Orders Ordered: ED Orders 02/14/24 02:16 XR chest 1V Stat Urinalysis and Microscopic Stat EKG-12 Lead Stat 02/14/24 02:34 Respiratory Panel (Film Array) Stat 02/14/24 02:45 Complete Blood Count AUTO DIFF Stat Comprehensive Metabolic Panel Stat Lipase Stat Troponin & CK Cardiac Panel Stat 02/14/24 03:20 Blood Culture Stat Discontinued Medications Azithromycin (Azithromycin 250 Mg Tablet) 500 mg PO NOW ONE Stop: 02/14/24 04:07 Last Admin: 02/14/24 05:18 Dose: 500 mg Documented By: Doxycycline Hyclate (Doxycycline Hyclate 100 Mg Tablet) 100 mg PO NOW ONE Stop: 02/14/24 02:51 Last Admin: 02/14/24 03:15 Dose: 100 mg Documented By: Sodium Chloride (Normal Saline 0.9%) 1,000 mls @ 500 mls/hr IV BOLUS ONE Stop: 02/14/24 04:15 Last Infusion: 02/14/24 05:19 Dose: Infused Documented By: Admin: 02/14/24 03:15 Dose: 500 mls/hr Documented By: Ceftriaxone Sodium 1,000 mg/ (Sodium Chloride) 100 mls @ 200 mls/hr IV NOW ONE Stop: 02/14/24 02:51 Last Infusion: 02/14/24 04:00 Dose: Infused Documented By: Admin: 02/14/24 03:15 Dose: 200 mls/hr Documented By: Vital Signs Vital signs: Vital Signs - 8 hr 02/14/24 02:01 02/14/24 02:01 02/14/24 02:13 Pulse Rate 93 H 93 H Respiratory Rate 28 H 20 Blood Pressure 119/82 119/82 Pulse Oximetry 90 L Oxygen Delivery Method Room Air Oxygen Flow Rate 02/14/24 02:30 02/14/24 03:00 02/14/24 03:02 Pulse Rate 98 H 91 H 91 H Respiratory Rate 31 H 26 H Blood Pressure Pulse Oximetry 92 94 93 Oxygen Delivery Method Nasal Cannula Room Air Blow By Oxygen Flow Rate 2 02/14/24 03:02 02/14/24 03:30 02/14/24 03:30 Pulse Rate 89 Respiratory Rate 33 H Blood Pressure 132/86 133/77 Pulse Oximetry 91 Oxygen Delivery Method Room Air Oxygen Flow Rate 02/14/24 04:00 02/14/24 04:00 02/14/24 04:30 Pulse Rate 87 86 Respiratory Rate 38 H 26 H Blood Pressure 142/78 H Pulse Oximetry 91 92 Oxygen Delivery Method Room Air Room Air Oxygen Flow Rate 02/14/24 04:30 02/14/24 05:00 02/14/24 05:00 Pulse Rate 86 Respiratory Rate 23 Blood Pressure 135/80 133/70 Pulse Oximetry 92 Oxygen Delivery Method Room Air Oxygen Flow Rate Medical Decision Making Lab Data Lab results reviewed: Yes I reviewed the patient's lab results. Lab results narrative: White blood cell count 14323, hemoglobin 16, platelets adequate, sodium 133 with glucose 130. Potassium 3.7 normal. BUN 23 with elevated creatinine 1.48. Respiratory panel negative for COVID and influenza, but positive for mycoplasma pneumoniae. 02/14/24 02:45 02/14/24 02:45 Labs: Lab Results 02/14/24 02/14/24 Range/Units 02:34 02:45 WBC 12.3 H (4.5-11.0) X10^3/uL RBC 5.18 (4.5-5.9) X10^6/uL Hgb 16.4 (13.5-17.5) g/dL Hct 46.9 (41-53) % MCV 90.7 (80-100) fL MCH 31.6 (26-34) PG MCHC 34.8 (30-36) % RDW 13.4 (11.6-14.8) % Plt Count 391 (150-400) X10^3/uL Neut % (Auto) 80.0 H (50-75) % Lymph % (Auto) 12.0 L (25-40) % [place] % (Auto) 6.6 (3-14) % Eos % (Auto) 0.7 L (2-4) % Baso % (Auto) 0.7 (0-2) % Neut # (Auto) 9900 H (1340-6406) /uL Lymph # (Auto) 1500 (8968-4157) /uL [place] # (Auto) 800 (0-900) /uL Eos # (Auto) 100 (0-450) /uL Baso # (Auto) 100 (0-100) /uL Sodium 133 L (137-145) mmol/L Potassium 3.7 (3.4-5.1) mmol/L Chloride 98 (98-107) mmol/L Carbon Dioxide 23 (22-32) mmol/L BUN 23 H (9-20) mg/dL Creatinine 1.48 H (0.66-1.25) mg/dL Estimated GFR 52 L (>60) mL/min BUN/Creatinine Ratio 15.5 (6-22) Glucose 130 H (80-110) mg/dL Calcium 8.7 (8.4-10.2) mg/dL Total Bilirubin 1.4 H (0.2-1.3) mg/dL AST 61 H (17-59) IU/L ALT 32 (<50) IU/L Alkaline Phosphatase 120 (38-126) U/L Total Creatine Kinase 258 H (55-170) U/L Troponin I 0.013 (0.01-0.034) ng/mL Total Protein 7.7 (6.3-8.2) g/dL Albumin 4.0 (3.5-5.0) g/dL Globulin 3.7 (1.7-4.1) g/dL Albumin/Globulin Ratio 1.1 (1.0-2.8) Lipase 290 (23-300) U/L Chlamy pneumoniae PCR Not detected (Not Detect) Adenovirus (PCR) Not detected (Not Detect) B. pertussis DNA (PCR) Not detected (Not Detect) B.parapertussis DNA PCR Not detected (Not Detecte) Coronavirus OC43 (PCR) Not detected (Not Detect) Coronavirus HKU1 (PCR) Not detected (Not Detect) Coronavirus 229E (PCR) Not detected (Not Detect) SARS-CoV-2 (PCR) Not detected (Not Detecte) Coronavirus NL63 (PCR) Not detected (Not Detect) Human Metapneumovir PCR Not detected (Not Detect) Influenza Type A (PCR) Not detected (Not Detect) Influenza Type B (PCR) Not detected (Not Detect) M. pneumoniae (PCR) Detected H (Not Detect) Parainfluenza 1 (PCR) Not detected (Not Detect) Parainfluenza 2 (PCR) Not detected (Not Detect) Parainfluenza 3 (PCR) Not detected (Not Detect) Parainfluenza 4 (PCR) Not detected (Not Detect) RSV (PCR) Not detected (Not Detect) Entero/Rhino (PCR) Not detected (Not Detect) ECG Data Attestation: I personally reviewed and interpreted this ECG as follows: Interpretation: Normal sinus rhythm with rate of 90, no obvious ST segment elevation or depression changes. SC 162, QRS 102, QTC 491. MDM Narrative Medical decision making narrative: 63-year-old male with generalized weakness, 2 weeks' duration cough, history of melanoma with monthly Port-A-Cath immunotherapy infusions, next infusion due 1st week of February. Bibasilar crackles. Arrived by EMS on oxygen, not usually on oxygen, unclear if empiric or in response given to low oxygen state. We will wean off to determine if there is oxygen requirement. Chest x-ray and labs pending. Chest x-ray single view. Impressions: ?Multifocal bilateral pulmonary infiltrates. Follow up chest x-ray after appropriate treatment to document resolution.? See teleradiology report Respiratory panel results pending. Blood cultures requested. IV ceftriaxone, oral doxycycline. Attempt to wean from oxygen. Respiratory swab positive for mycoplasma, negative for COVID and influenza and other pathogens tested. We will substitute doxycycline with oral azithromycin, 1st dose now, further course prescription sent to his pharmacy. Weaned from oxygen given by EMS, 91-92% room air, no respiratory distress. IV fluid given, creatinine 1.48 noted, likely MARCELINA due to dehydration. Discharged home. Follow up kidney function as an outpatient advised early next week with PCP. Return precautions discussed. Home with family. Discharge Plan Departure Patient Disposition: Home Clinical Impression: Mycoplasma pneumoniae pneumonia, Generalized weakness, MARCELINA (acute kidney injury) Activity Restrictions/Additional Instructions: Cough and generalized weakness. Chest x-ray suspicious for multifocal infiltrates. COVID swab was negative. Respiratory pathogens positive for mycoplasma pneumonia. Macrolide antibiotics such as azithromycin and erythromycin works well for this. First dose given in the emergency department, further course of antibiotic sent to your pharmacy. Take antibiotics as prescribed. Drink plenty of fluids. Your kidney function was elevated, some component of dehydration suspected. IV fluids given. Recheck kidney function in follow up with your doctor early next week. Return to this/nearest emergency department for any change worsening symptoms or any concerns prior Prescriptions: New azithromycin 250 mg tablet See Rx Instructions PO .COMPLEX Qty: 6 0RF Rx Instructions: For 250 mg dose pack: take 500 mg today (day 1), then 250 mg for 4 days (days 2-5) No Action cholecalciferol (vitamin D3) 50 mcg (2,000 unit) capsule 50 mcg PO DAILY calcium carbonate [Tums] 300 mg (750 mg) tablet,chewable 300 mg PO DAILY PRN (Reason: dyspepsia) Centrum Silver Men 300-600-300 mcg tablet 1 tab PO DAILY melatonin 5 mg tablet 5 mg PO BEDTIME PRN (Reason: Insomnia) Opdualag 240-80 mg/20 mL solution 40 ml IV Q4W losartan 50 mg tablet 50 mg PO DAILY Qty: 90 3RF varenicline [Chantix Starting Month Box] 0.5 mg (11)- 1 mg (42) tablets,dose pack See Rx Instructions PO PER PKG DIR Qty: 53 0RF Rx Instructions: PO PER PKG DIR varenicline [Chantix] 1 mg tablet 1 mg PO BID Qty: 60 5RF tramadol 100 mg tablet 100 mg PO BID PRN (Reason: pain) Qty: 10 0RF acetaminophen [Tylenol] 325 mg Capsule 650 mg PO Q6H PRN (Reason: Pain (Scale Score 4-6)) budesonide 3 mg Capsule,Delayed,Extend.Release 9 mg PO DAILY Rx Instructions: take 9 mg PO QD x 6 weeks then reduce to 6 mg daily x 2 weeks Referrals: Rocio Colbert DO [Primary Care Provider] - Stand Alone Forms: Patient Portal/API
[2024-02-14 03:00] LABS: Add Manual Diff / Slide Review NO; Basophils Absolute Auto 100 /uL (0-100); Basophils Percent Auto 0.7 % (0-2); Eosinophils Absolute Auto 100 /uL (0-450); Eosinophils Percent Auto 0.7 % (2-4); Hematocrit 46.9 % (41-53); Hemoglobin 16.4 g/dL (13.5-17.5); Lymphocytes Absolute Auto 1500 /uL (1100-4500); Mean Corpuscular HGB Conc 34.8 % (30-36); Mean Corpuscular Hemoglobin 31.6 PG (26-34); Mean Corpuscular Volume 90.7 fL (80-100); Monocytes Absolute Auto 800 /uL (0-900); Monocytes Percent Auto 6.6 % (3-14); Neutrophils Absolute Auto 9900 /uL (1500-7000); Platelet Count 391 X10^3/uL (150-400); Red Blood Cell Count 5.18 X10^6/uL (4.5-5.9); Red Cell Distribution Width 13.4 % (11.6-14.8); White Blood Cell Count 12.3 X10^3/uL (4.5-11.0)
[2024-02-14 03:15] LABS: Alanine Aminotransferase 32 IU/L (<50); Albumin Globulin Ratio 1.1 (1.0-2.8); Alkaline Phosphatase 120 U/L (38-126); Aspartate Aminotransferase 61 IU/L (17-59); BUN Creatinine Ratio 15.5 (6-22); Bilirubin Total 1.4 mg/dL (0.2-1.3); Blood Urea Nitrogen 23 mg/dL (9-20); Calcium 8.7 mg/dL (8.4-10.2); Carbon Dioxide 23 mmol/L (22-32); Chloride 98 mmol/L (98-107); Creatine Kinase 258 U/L (55-170); Estimated Glomerular Filt Rate 52 mL/min (>60); Globulin 3.7 g/dL (1.7-4.1); Glucose 130 mg/dL (80-110); HEMOLYSIS < 15 (0-50); Lipase 290 U/L (23-300); Potassium 3.7 mmol/L (3.4-5.1); Sodium 133 mmol/L (137-145); Total Protein 7.7 g/dL (6.3-8.2)
[2024-02-14] MEDS: SODIUM CHLORIDE 0.9% 1,000 ML 500 ML IV (03:15)
[2024-02-14] MEDS: cefTRIAXone 1,000 MG in SODIUM CHLORIDE 0.9% 100 ML 200 MG IV (03:15)
[2024-02-14] MEDS: DOXYCYCLINE HYCLATE 100 MG TABLET PO (03:15)
[2024-02-14 03:27] LABS: Troponin I 0.013 ng/mL (0.01-0.034)
--- NOTE | 2024-02-14 03:29 | EKG_ITS ---
[place] [address] [address] [place] [id number] Test Date: 2024-02-14 Pat Name: Aaron Holguin Department: 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
[2024-02-14 03:51] LABS: Adenovirus Not Detected (Not Detect); B. parapertussis Not Detected (Not Detecte); Bordetella pertussis Not Detected (Not Detect); Chlamydophila pneumoniae Not Detected (Not Detect); Coronavirus 229E Not Detected (Not Detect); Coronavirus HKU1 Not Detected (Not Detect); Coronavirus NL 63 Not Detected (Not Detect); Coronavirus OC43 Not Detected (Not Detect); Human Metapneumovirus Not Detected (Not Detect); Human Rhinovirus/Enterovirus Not Detected (Not Detect); Influenza A Not Detected (Not Detect); Influenza B Not Detected (Not Detect); Mycoplasma pneumoniae Detected (Not Detect); Parainfluenza Virus 1 Not Detected (Not Detect); Parainfluenza Virus 2 Not Detected (Not Detect); Parainfluenza Virus 3 Not Detected (Not Detect); Parainfluenza Virus 4 Not Detected (Not Detect); Respiratory Syncytial Virus Not Detected (Not Detect); SARS- CoV-2 Not Detected (Not Detecte)
[2024-02-14] MEDS: AZITHROMYCIN 250 MG TABLET 500 MG PO (05:18)
== END 2024-02-14 05:32 | disposition home or self-care (01) ==
PROVIDERS: Emergency Provider Emergency Medicine; Family Provider Family Medicine; PCP Family Medicine
DX: J15.7 Pneumonia due to Mycoplasma pneumoniae (principal); N17.9 Acute kidney failure, unspecified; R53.1 Weakness; R07.9 Chest pain, unspecified
CPT/HCPCS: 36415; 71045; 80053; 82550; 83690; 84484; 85025; 87040; 87633; 93005; 96361; 96365; 99285; J0696

== ENCOUNTER 2024-02-28 12:17 | Emergency (ER) | payer MEDICARE, SELFPAY ==
[2024-02-28] VITALS (13 sets, daily range): BP systolic 108–139; BP diastolic 70–82; PULSE 77–104; RESP 12–20; TEMP 36.6; O2SAT 93–97; BMI 27.5
--- NOTE | 2024-02-28 12:33 | DI.RAD.S_ITS ---
PROCEDURE: XR CHEST 1V INDICATIONS: Shortness of breath TECHNIQUE: One view of the chest was acquired. COMPARISON: [facility], CR, XR CHEST 1V, 02/14/2024, 2:17. [facility], CR, XR CHEST 1V, 01/11/2024, 8:03. FINDINGS: Surgical changes and devices: Port-A-Cath in normal position. Lungs and pleura: Lungs are improving at the right lung where a pneumonia pattern had been previously present. Again noted is a lateral left lung base ovoid soft tissue nodule better seen by prior CT scanning. No pleural effusions or pneumothorax. Mediastinum: Mediastinal contours appear normal. Heart size is normal. Bones and chest wall: No suspicious bony lesions. Overlying soft tissues appear unremarkable. IMPRESSION: Improving right lung pneumonia, Port-A-Cath in normal position, lateral left lower lobe pulmonary nodule better seen by CT scanning 02/20/24. Dictated by: Mahendra Orlando M.D. on 02/28/2024 at 12:50 Approved by: Mahendra Orlando M.D. on 02/28/2024 at 12:52
--- NOTE | 2024-02-28 12:44 | EKG_ITS ---
[place] [id number] [place] [id number] Test Date: 2024-02-28 Pat Name: Aaron Holguin Department: [facility] Room: Gender: Male [employer] Maker: SAVANAH : 1960 Requested By: Order Number: [id number] Reading MD: Ish Omalley MD Measurements Intervals [place] Rate: 101 P: 68 PA: 174 QRS: 70 QRSD: 108 T: 58 QT: 358 QTc: 464 Interpretive Statements Sinus tachycardia Possible Left atrial enlargement Electronically Signed On 02-28-2024 15:14:01 PST by Ish Omalley MD
[2024-02-28 13:55] LABS: INR 1.1 (0.9-1.3); Prothrombin Time 12.7 SECONDS (9.4-12.5)
[2024-02-28 14:00] LABS: Alanine Aminotransferase 22 IU/L (<50); Albumin 3.8 g/dL (3.5-5.0); Albumin Globulin Ratio 1.1 (1.0-2.8); Alkaline Phosphatase 91 U/L (38-126); Aspartate Aminotransferase 45 IU/L (17-59); BUN Creatinine Ratio 7.5 (6-22); Bilirubin Total 0.8 mg/dL (0.2-1.3); Blood Urea Nitrogen 8 mg/dL (9-20); Calcium 9.2 mg/dL (8.4-10.2); Carbon Dioxide 21 mmol/L (22-32); Chloride 104 mmol/L (98-107); Estimated Glomerular Filt Rate > 60 mL/min (>60); Globulin 3.4 g/dL (1.7-4.1); Glucose 95 mg/dL (80-110); HEMOLYSIS < 15 (0-50); Potassium 3.9 mmol/L (3.4-5.1); Sodium 134 mmol/L (137-145); Total Protein 7.2 g/dL (6.3-8.2)
[2024-02-28 14:01] LABS: Lactate (Lactic Acid) 1.2 mmol/L (0.7-2.1)
[2024-02-28 14:07] LABS: Hematocrit 43.9 % (41-53); Hemoglobin 14.7 g/dL (13.5-17.5); Mean Corpuscular HGB Conc 33.4 % (30-36); Mean Corpuscular Hemoglobin 31.4 PG (26-34); Mean Corpuscular Volume 93.8 fL (80-100); Platelet Count 465 X10^3/uL (150-400); Red Blood Cell Count 4.68 X10^6/uL (4.5-5.9); Red Cell Distribution Width 14.4 % (11.6-14.8); White Blood Cell Count 9.7 X10^3/uL (4.5-11.0)
[2024-02-28 14:08] LABS: Add Manual Diff / Slide Review YES
[2024-02-28 14:12] LABS: NT-proBNP (BNP-Adult 18+) 378 pg/mL (<125); Troponin I < 0.012 ng/mL (0.01-0.034)
--- NOTE | 2024-02-28 15:26 | ED.SOB ---
HPI - SOB/Dyspnea General Chief Complaint: Shortness of Breath/Dyspnea Stated Complaint: SOB pneumonia just finished ABO course Time Seen by Provider: 02/28/24 15:19 Mode of arrival: Wheelchair History of Present Illness HPI Narrative: Patient is a 63-year-old male history of melanoma on immunotherapy presenting today with shortness of breath. He was diagnosed with mycoplasma pneumonia on 02/14/24 he was prescribed 2 rounds of azithromycin. He has been resting and sleeping more. He did not have immunotherapy this week. He reports that he had a chest CT done last week by Oncology. However he still reports some shortness of breath no real chest pain no swelling in his legs. He has been drinking fluids. His primary site of melanomas on the roof of his mouth. No abdominal pain nausea vomiting no other fevers Related Data Home Medications Medication Instructions Recorded Confirmed calcium carbonate (Tums) 300 mg PO DAILY PRN dyspepsia 09/30/21 02/28/24 cholecalciferol (vitamin D3) 50 50 mcg PO DAILY 09/30/21 02/28/24 mcg (2,000 unit) capsule migvidvo-rr-[id number] 300 mcg-K 60 1 tab PO DAILY 09/30/21 02/28/24 mcg-lycop 600 mcg-lutein 300 mcg tablet (Centrum Silver Men) acetaminophen 325 mg capsule 650 mg PO Q6H PRN Pain (Scale 02/28/22 02/28/24 (Tylenol) Score 4-6) budesonide 3 mg 9 mg PO DAILY 03/08/22 02/28/24 capsule,delayed,extended release nivolumab 240 oy-grsujmtqld-vylq 40 ml IV Q4W 08/27/23 02/28/24 80 mg/20 mL intravenous solution (Opdualag) Previous Rx's Medication Instructions Recorded losartan 50 mg tablet 50 mg PO DAILY blood pressure #90 08/27/23 tabs albuterol sulfate 90 mcg/actuation 1 - 2 inh inhalation Q4-6H PRN 02/18/24 aerosol inhaler shortness of breath or wheezing #8.5 grams nystatin 100,000 unit/mL oral 500,000 unit (5 mL) PO BID PRN 02/18/24 suspension mouth irritation #200 mL Allergies Allergy/AdvReac Type Severity Reaction Status Date / Time codeine AdvReac Mild NAUSEA Verified 02/28/24 12:30 Patient History Medical History IFG (impaired fasting glucose) Hyperlipidemia Benign essential hypertension Bronchitis Sinusitis Right shoulder pain (03/04/14) Acute appendicitis Surgical History History of tonsillectomy Family History Sister Colorectal cancer Social History household members: none Smoking Status: Former smoker Smoking Status: Former smoker alcohol intake frequency: holidays/special occasions only Substance Use Type: does not use Exam Initial Vital Signs Initial Vital Signs: Vital Signs Temperature 97.8 F 02/28/24 12:30 Pulse Rate 104 H 02/28/24 12:30 Respiratory Rate 15 02/28/24 12:30 Blood Pressure 114/76 02/28/24 12:30 Pulse Oximetry 94 02/28/24 12:30 Oxygen Delivery Method Room Air 02/28/24 12:30 GENERAL: Alert chronically ill 63-year-old male and in no acute distress. HEENT: Head atraumatic,EOMI, pupils reactive, face symmetric, moist mucous membranes PHARYNX: Roof of mouth noted to be erythematous no active bleeding no masses CARDIOVASCULAR: Regular rate and rhythm without murmurs, rubs or gallops. RESPIRATORY: Breath sounds equal bilaterally, no wheezes rales or rhonchi. ABDOMEN: Soft, nontender. Normoactive bowel sounds all 4 quadrants. No guarding or rebound. EXTREMITIES: Normal range of motion, no clubbing or edema. Neurovascularly intact NEUROLOGICAL: Alert and oriented x4.Normal gait and speech. SKIN: Warm, dry, no laceration, no petechiae, no rashes or lesions. Course Orders Ordered: ED Orders 02/28/24 12:33 XR chest 1V Stat EKG-12 Lead Stat Measure peak expiratory flow ONCE RT Consult Eval and Treat NOW 02/28/24 13:40 Complete Blood Count AUTO DIFF Stat Comprehensive Metabolic Panel Stat Lactate (Lactic Acid) Stat NT-proBNP (BNP-Adult 18+) Stat Prothrombin Time INR Stat Troponin I Stat 02/28/24 15:39 CT angio chest PE protocol Stat Vital Signs Vital signs: Vital Signs - 8 hr 02/28/24 12:30 02/28/24 13:02 02/28/24 13:03 Temperature 97.8 F Pulse Rate 104 H 91 H 89 Respiratory Rate 15 Blood Pressure 114/76 Pulse Oximetry 94 95 95 Oxygen Delivery Method Room Air 02/28/24 13:03 02/28/24 13:30 02/28/24 13:30 Temperature 97.8 F Pulse Rate 79 Respiratory Rate Blood Pressure 133/79 112/78 Pulse Oximetry 95 Oxygen Delivery Method 02/28/24 14:00 02/28/24 14:00 02/28/24 14:30 Temperature Pulse Rate 77 83 Respiratory Rate Blood Pressure 126/76 Pulse Oximetry 94 93 Oxygen Delivery Method Room Air 02/28/24 14:30 02/28/24 15:00 02/28/24 15:00 Temperature Pulse Rate 87 Respiratory Rate Blood Pressure 129/80 139/82 Pulse Oximetry 97 Oxygen Delivery Method 02/28/24 15:30 02/28/24 15:30 02/28/24 16:06 Temperature Pulse Rate 87 97 H Respiratory Rate 19 Blood Pressure 123/70 Pulse Oximetry 93 94 Oxygen Delivery Method Room Air 02/28/24 16:08 02/28/24 16:08 02/28/24 16:30 Temperature Pulse Rate 94 H Respiratory Rate 12 Blood Pressure 126/77 108/75 Pulse Oximetry 97 Oxygen Delivery Method Room Air 02/28/24 16:30 02/28/24 17:00 02/28/24 17:01 Temperature Pulse Rate 100 H 82 83 Respiratory Rate 20 20 20 Blood Pressure Pulse Oximetry Oxygen Delivery Method 02/28/24 17:01 Temperature Pulse Rate Respiratory Rate Blood Pressure 132/78 Pulse Oximetry Oxygen Delivery Method MDM - SOB/Dyspnea Lab Data 02/28/24 13:40 02/28/24 13:40 Labs: Lab Results 02/28/24 Range/Units 13:40 WBC 9.7 (4.5-11.0) X10^3/uL RBC 4.68 (4.5-5.9) X10^6/uL Hgb 14.7 (13.5-17.5) g/dL Hct 43.9 (41-53) % MCV 93.8 (80-100) fL MCH 31.4 (26-34) PG MCHC 33.4 (30-36) % RDW 14.4 (11.6-14.8) % Plt Count 465 H (150-400) X10^3/uL Neut % (Auto) Not Reportable Lymph % (Auto) Not Reportable [place] % (Auto) Not Reportable Eos % (Auto) Not Reportable Baso % (Auto) Not Reportable Lymph # (Auto) Not Reportable [place] # (Auto) Not Reportable Baso # (Auto) Not Reportable Total Counted 100 Seg Neutrophils % 33.0 L (38-70) % Lymphocytes % (Manual) 44.0 (25-45) % Atypical Lymphs % 1.0 H ( - 0) % Monocytes % (Manual) 12.0 H (2-11) % Eosinophils % (Manual) 10.0 H (2-4) % Neutrophils # (Manual) 3201 (7951-1170) /uL Smudge Cells 2+ H RBC Morphology See below Anisocytosis 1+ H Rouleaux 1+ H PT 12.7 H (9.4-12.5) SECONDS INR 1.1 (0.9-1.3) Sodium 134 L (137-145) mmol/L Potassium 3.9 (3.4-5.1) mmol/L Chloride 104 (98-107) mmol/L Carbon Dioxide 21 L (22-32) mmol/L BUN 8 L (9-20) mg/dL Creatinine 1.06 (0.66-1.25) mg/dL Estimated GFR > 60 (>60) mL/min BUN/Creatinine Ratio 7.5 (6-22) Glucose 95 (80-110) mg/dL Lactate 1.2 (0.7-2.1) mmol/L Calcium 9.2 (8.4-10.2) mg/dL Total Bilirubin 0.8 (0.2-1.3) mg/dL AST 45 (17-59) IU/L ALT 22 (<50) IU/L Alkaline Phosphatase 91 (38-126) U/L Troponin I < 0.012 (0.01-0.034) ng/mL NT-Pro-B Natriuret Pep 378 H (<125) pg/mL Total Protein 7.2 (6.3-8.2) g/dL Albumin 3.8 (3.5-5.0) g/dL Globulin 3.4 (1.7-4.1) g/dL Albumin/Globulin Ratio 1.1 (1.0-2.8) Imaging Data CT scan - chest: Radiologist's Impression: PROCEDURE: CT ANGIO CHEST PE PROTOCOL INDICATIONS: melenoma penumonia, sob TECHNIQUE: After the administration of intravenous contrast, 2 mm thick sections acquired from the pulmonary apices to the posterior costophrenic angles. 3-dimensional maximum intensity projection (MIP) coronal and sagittal reformats were then acquired through the thorax. For radiation dose reduction, the following was used: automated exposure control, adjustment of mA and/or kV according to patient size. COMPARISON: [facility], CT, CT CHEST WITH CONTRAST, 02/20/2024, 10:59. [facility], CR, XR CHEST 1V, 02/28/2024, 12:32. FINDINGS: Image quality: Diagnostic. Pulmonary arteries: Pulmonary arteries are normal in size, and demonstrate no intraluminal filling defects to suggest central pulmonary embolism. Lower Neck: No enlarged lymph nodes. Thyroid: No thyroid nodules which require sonographic follow up, per consensus guidelines. Axillae: No enlarged lymph nodes. Chest Wall: Left chest Port-A-Cath. Bones: Unremarkable. Lungs and Pleura: No pneumothorax or pleural effusions. Diffuse tree-in-bud nodularity is seen in both lungs, which appear to be similar in extent to when compared to the prior CT from 02/20/2024. Cavitary nodule again seen at the right upper lobe. Dense consolidation again seen at the posterior right lung base. Stable appearance of solid pulmonary nodules in the left lower lobe. Heart: Heart size is normal. No pericardial effusion. Thoracic Vessels: No aortic aneurysm. Mediastinum and Sugar: Mildly prominent right hilar and right paratracheal lymph nodes do not appear significantly changed. Esophagus: No wall thickening. No hiatal hernia. Upper Abdomen: Stable small hypoattenuating lesions in the liver. Visualized upper abdomen solid organs and bowel loops appear normal. IMPRESSION: 1. No acute pulmonary embolus. 2. Diffuse bilateral tree-in-bud nodularity is similar in distribution when compared to the CT from 02/19/2014, most likely infectious in etiology. 3. Solid pulmonary nodules in the left lower lobe again consistent with metastatic disease. ECG Data Attestation: I personally reviewed and interpreted this ECG as follows: Prior ECG tracings: available for review Interpretation: Sinus tachycardia rate 101 WI interval 174 QRS 108 QTC 464 no ischemic changes MDM Narrative Medical decision making narrative: MDM CC: Shortness of breath Complicating co-morbidities: Melanoma recent mycoplasma pneumonia Medical records reviewed: ED visit from 02/14/2024 does show mycoplasma pneumonia with bilateral pneumonia noted on x-ray Differential considered: Pulmonary embolism CHF acute coronary syndrome Exam documented above, pertinent findings include: Patient overall appears well no wheezing rales or rhonchi no conversational dyspnea Lab Test results independently reviewed as above. Pertinent findings: WBC 9.7 previously 12.3 no anemia Creatinine 1.06, previously 1.48 Troponin negative BNP 370 Independently reviewed EKG as above sinus tachycardia Imaging studies independently reviewed: Chest x-ray no pneumonia CT angio no pneumonia or pulmonary embolism, there is noted to be solitary nodules concerning for malignancy Consultations: None Treatments: None Re-evaluations: [ ] Discussion: Patient 63-year-old male with probable metastatic melanoma presenting today with ongoing shortness of breath. He was recently diagnosed with mycoplasma pneumonia he took 2 doses of azithromycin. He did have some bowel of diarrhea but no diarrhea in the ED. No significant concern for C diff today. No evidence of pneumonia on CT or x-ray today. Blood work shows overall improvement no leukocytosis MARCELINA has improved. CT rules out pulmonary embolism. He has not hypoxic. No wheezing. Patient is offered albuterol which he declines. He does have Robitussin at home and Mucinex which he continues to take. Discussion of results with and patient up today and last visit as well. At this time I do not think he needs any further antibiotics. No explanation for his ongoing shortness of breath at this time. Recommend continued supportive care. 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 No evidence of pulmonary embolism today. You do have some lung metastasis. Please follow-up with Oncology *Continue to take medications as directed Continue medication as previously prescribed *Follow up with your primary care provider in 2-3 days or call [phone] *Return to ER if you should have oxygen level less than 90%, not drinking fluids increased confusion or any new, worsening or concerning symptoms Prescriptions: No Action cholecalciferol (vitamin D3) 50 mcg (2,000 unit) capsule 50 mcg PO DAILY calcium carbonate [Tums] 300 mg (750 mg) tablet,chewable 300 mg PO DAILY PRN (Reason: dyspepsia) Centrum Silver Men 300-600-300 mcg tablet 1 tab PO DAILY Opdualag 240-80 mg/20 mL solution 40 ml IV Q4W losartan 50 mg tablet 50 mg PO DAILY Qty: 90 3RF nystatin 100,000 unit/mL suspension 500,000 unit PO BID PRN (Reason: mouth irritation) Qty: 200 3RF Rx Instructions: swish and spit albuterol sulfate 90 mcg/actuation HFA aerosol inhaler 1 - 2 inh inhalation Q4-6H PRN (Reason: shortness of breath or wheezing) Qty: 8.5 11RF acetaminophen [Tylenol] 325 mg Capsule 650 mg PO Q6H PRN (Reason: Pain (Scale Score 4-6)) budesonide 3 mg Capsule,Delayed,Extend.Release 9 mg PO DAILY Rx Instructions: take 9 mg PO QD x 6 weeks then reduce to 6 mg daily x 2 weeks Referrals: Rocio Colbert DO [Primary Care Provider] - Stand Alone Forms: Patient Portal/API/Survey
[2024-02-28 15:27] LABS: Neutrophils Absolute Manual 3201 /uL (3000-5900); Total Cells Counted 100
[2024-02-28 15:28] LABS: Smudge Cells 2+
[2024-02-28 15:29] LABS: Anisocytosis 1+; Rouleaux 1+
--- NOTE | 2024-02-28 15:39 | DI.CT.S_ITS ---
PROCEDURE: CT ANGIO CHEST PE PROTOCOL INDICATIONS: melenoma penumonia, sob TECHNIQUE: After the administration of intravenous contrast, 2 mm thick sections acquired from the pulmonary apices to the posterior costophrenic angles. 3-dimensional maximum intensity projection (MIP) coronal and sagittal reformats were then acquired through the thorax. For radiation dose reduction, the following was used: automated exposure control, adjustment of mA and/or kV according to patient size. COMPARISON: [facility], CT, CT CHEST WITH CONTRAST, 02/20/2024, 10:59. [facility], CR, XR CHEST 1V, 02/28/2024, 12:32. FINDINGS: Image quality: Diagnostic. Pulmonary arteries: Pulmonary arteries are normal in size, and demonstrate no intraluminal filling defects to suggest central pulmonary embolism. Lower Neck: No enlarged lymph nodes. Thyroid: No thyroid nodules which require sonographic follow up, per consensus guidelines. Axillae: No enlarged lymph nodes. Chest Wall: Left chest Port-A-Cath. Bones: Unremarkable. Lungs and Pleura: No pneumothorax or pleural effusions. Diffuse tree-in-bud nodularity is seen in both lungs, which appear to be similar in extent to when compared to the prior CT from 02/20/2024. Cavitary nodule again seen at the right upper lobe. Dense consolidation again seen at the posterior right lung base. Stable appearance of solid pulmonary nodules in the left lower lobe. Heart: Heart size is normal. No pericardial effusion. Thoracic Vessels: No aortic aneurysm. Mediastinum and Sugar: Mildly prominent right hilar and right paratracheal lymph nodes do not appear significantly changed. Esophagus: No wall thickening. No hiatal hernia. Upper Abdomen: Stable small hypoattenuating lesions in the liver. Visualized upper abdomen solid organs and bowel loops appear normal. IMPRESSION: 1. No acute pulmonary embolus. 2. Diffuse bilateral tree-in-bud nodularity is similar in distribution when compared to the CT from 02/19/2014, most likely infectious in etiology. 3. Solid pulmonary nodules in the left lower lobe again consistent with metastatic disease. Approved by: Benji Emery M.D. on 02/28/2024 at 16:53
== END 2024-02-28 17:27 | disposition home or self-care (01) ==
PROVIDERS: Emergency Provider Emergency Medicine; Family Provider Family Medicine; PCP Family Medicine
DX: R06.02 Shortness of breath (principal); J18.9 Pneumonia, unspecified organism; C78.00 Secondary malignant neoplasm of unspecified lung; R00.0 Tachycardia, unspecified
CPT/HCPCS: 36415; 71045; 71275; 80053; 83605; 83880; 84484; 85007; 85025; 85610; 93005; 93010; 99283; 99284; Q9967

== ENCOUNTER → 2024-04-08 09:20 | Outpatient (CLI) | payer MEDICARE, SELFPAY ==
[2024-04-08 11:03] LABS: Prostate Specific Antigen Scrn 0.888 ng/mL (0.1-4.0)
== END ==
PROVIDERS: Family Provider Family Medicine; PCP Family Medicine; Referring Provider Family Medicine; Visit Provider Family Medicine
DX: Z12.5 Encounter for screening for malignant neoplasm of prostate (principal)
CPT/HCPCS: 36415; G0103

== ENCOUNTER → 2025-04-07 10:18 | Outpatient (CLI) | payer MEDICARE, SELFPAY ==
[2025-04-07 11:47] LABS: Cholesterol 218 mg/dL (140-199); HDL Cholesterol 37 mg/dL (40-60); Triglycerides 140 mg/dL (35-150)
[2025-04-07 11:56] LABS: Hemoglobin A1C% w Est Avg Glu 5.5 % (4.0-6.0)
== END ==
PROVIDERS: Family Provider Family Medicine; PCP Family Medicine; Referring Provider Internal Medicine Hematology & Oncology; Visit Provider Internal Medicine Hematology & Oncology
DX: Z00.00 Encounter for general adult medical examination without abnormal findings (principal); C43.4 Malignant melanoma of scalp and neck; C43.8 Malignant melanoma of overlapping sites of skin; R73.01 Impaired fasting glucose; E06.3 Autoimmune thyroiditis; E78.5 Hyperlipidemia, unspecified; I10 Essential (primary) hypertension
CPT/HCPCS: 36415; 80061; 83036

== ENCOUNTER → 2025-04-20 13:38 | Outpatient (CLI) | payer MEDICARE, SELFPAY ==
[2025-04-20 17:09] LABS: Add Manual Diff / Slide Review NO; Hematocrit 43.5 % (41-53); Hemoglobin 14.9 g/dL (13.5-17.5); Lymphocytes Absolute Auto 2600 /uL (1100-4500); Mean Corpuscular HGB Conc 34.2 % (30-36); Mean Corpuscular Hemoglobin 32.5 PG (26-34); Mean Corpuscular Volume 94.9 fL (80-100); Platelet Count 439 X10^3/uL (150-400)
[2025-04-20 17:43] LABS: Alanine Aminotransferase 14 IU/L (<50); Albumin 4.3 g/dL (3.5-5.0); Albumin Globulin Ratio 1.4 (1.0-2.8); Alkaline Phosphatase 111 U/L (38-126); Blood Urea Nitrogen 29 mg/dL (9-20); Calcium 8.8 mg/dL (8.4-10.2); Carbon Dioxide 22 mmol/L (22-32); Chloride 97 mmol/L (98-107); Estimated Glomerular Filt Rate 45 mL/min (>60); Globulin 3.0 g/dL (1.7-4.1); Glucose 119 mg/dL (70-99); HEMOLYSIS < 15 (0-50); Potassium 4.0 mmol/L (3.4-5.1); Sodium 136 mmol/L (137-145); Total Protein 7.3 g/dL (6.3-8.2)
[2025-04-20 18:14] LABS: TSH w/ Reflex to FT4 2.73 uIU/mL (0.47-4.68)
== END ==
PROVIDERS: Family Provider Family Medicine; PCP Family Medicine; Referring Provider Family Medicine; Visit Provider Internal Medicine Hematology & Oncology
DX: E06.3 Autoimmune thyroiditis (principal); C43.4 Malignant melanoma of scalp and neck; C43.8 Malignant melanoma of overlapping sites of skin
CPT/HCPCS: 36415; 80053; 84443; 85025